=== PATIENT | female | born 1940 | race Caucasian/White ===

== ENCOUNTER 2017-02-04 23:19 | Inpatient (IN) | payer MEDICARE ==
[~2017-02-04] VITALS: Ht 161.3 cm; Wt 72.1 kg
[2017-02-05 00:40] VITALS: BP 108/54; PULSE 151; RESP 20; O2SAT 97
[2017-02-05] MEDS ORDERED: DOPamine 800 mg/250 mL D5W Premix IV ONE (00:51)
[2017-02-05] MEDS ORDERED: Polyethylene Glycol (PEG) 17 Gm Powder PO PRN (01:05)
[2017-02-05] MEDS ORDERED: Ondansetron 2 mg/mL 2 mL Inj IVPUSH PRN (01:05)
[2017-02-05] MEDS ORDERED: Senna-Docusate 8.6-50 mg Tablet PO PRN (01:05)
[2017-02-05] MEDS ORDERED: Norepineph 8,000 mCg/250 mL NS 8,000 MCG in IV Premix 1 EACH IV SCH (01:07)
--- NOTE | 2017-02-05 01:09 | PCM.HPMED ---
Subjective Date of Service Feb 05, 2017 Primary Provider: Admitting Physician: Destiny Quintero DO Primary Care Physician: Other,Physician Attending Physician: Destiny Quintero DO Admit Status: From the Emergency Department Chief Complaint: hypotension, dyspnea History of Present Illness: 76yoF with past medical history of ESRD on HD, atrial fibrillation, Bradycardia , CHF, COPD transferred from [facility] due to hypotension and acute dyspnea of unknown etiology. Patient is a poor historian and somnolent upon arrival. She is not answering questions appropriately however is alert and oriented x3. was called as well as daughter. Minimal history obtained from daughter. Patient's tried to arouse patient this morning and had a difficult time waking her but eventually got her up and was able to take her to her wound care appointment. Wound care was concerned that patient was somnolent and dyspneic and sent her to [facility]. Daughter mentioned new medication of morphine prescribed. Amount taken by patient is unknown. As per medical record and patient she became short of breath about 3-4 days ago. She endorses fevers and chills and as per documentation had rigors prior to initial presentation. Daughter was notified and was concerned about acute illness as the patient was slurring her words and not at baseline. Right lower extremity has been managed as an outpatient by wound care with recent antibiotics given however patient is unaware of what medications were initiated. Prior to transfer patient was given NS 1000cc, duoneb, insulin 5IV. Presenting vitals at OSH BP 101/53, HR 98, RR 24, oxygen sat 100 Labs on initial presentation sodium 133, potassium 5.7, chloride 100, CO2 22, calcium 8.4, BUN 71, creatinine 4.1 WBC 5.4, hgb 8.4 platelet 122, neutrophil 86.8%, INR 1.3, lactic acid 1.3 No imaging sent with patient or available for review. Review of Systems: unable to obtain complete review of systems as patient is somnolent Allergies Coded Allergies: egg (Verified Adverse Reaction, Intermediate, N/V, 02/05/17) Home Medications Home medications as per medical record with patient upon arrival this will need to be confirmed in [facility] in [place] ASA CoQ-10 Fibercon Fish oil Hydrocodone-acetaminophen Furosemide 40mg daily Losartan 25mg daily Spiriva Spironolactone Trazodone PMH Past medical history as per medical records available with patient. Patient is unable to give history on admission Atrial fibrillation Allergies Asthma Bradycardia Carpal Tunnel Syndrome CHF COPD DJD Fall Hyperkalemia ESRD, not currently on hemodialysis Surgical History Cardiac valve Fistula Hernia repair Pacemaker CAGB? Family History Patient is unable to give history on admission Social History Occupation: presumed retired Smoking Status: Unknown if Ever Smoker Exam Vital Signs T36.3 HR 151 RR 20 BP 108/54 (on dopamine) Exam General: somnolent but easily arousable, Oriented X3, Cooperative, No acute Distress Eyes: PERRLA, Scleral Anicteric Mouth: Mouth Normal, Mucous Membranes dry/[place] Neck: Supple, no Thyromegaly, trachea central. Chest & Lungs: crackles bases bilat Cardiovascular: Normal S1, Normal S2, No Murmurs/Rubs/Gallops, Regular Rate/ Rhythm, Pulses: Radial (present and equal), Dorsalis Pedi (present and equal) Abdomen: Soft, no tenderness, not distended, normoactive bowel tones. Musculoskeletal: Unremarkable. Normal range of motion, no swollen or erythematous joints Extremities: No edema, no cyanosis, no clubbing. Skin: right lower extremity wound Neurological: CN intact, strength 5/5, Normal Speech, Sensation Intact Lymphatic: Lymph nodes Cervical and Axillary not palpable. Lab and Diagnostics Labs sodium 132 potassium 5.9 CO2 19 Creatinine 3.93 Trop 0.074 BNP 7400 procal 0.31 hgb 8.8, mcv 102 Assessment & Plan 76yoF with past medical history of ESRD on HD, atrial fibrillation, Bradycardia , CHF, COPD transferred from [facility] due to hypotension and acute dyspnea of unknown etiology. Shock, acute, POA -unclear etiology septic vs cardiogenic -dopamine on transfer increased HR afib RVR -start norepinephrine, MAP goal >60 -ECHO ordered -broad spectrum abx, piperacillin-tazobactam -MRSA screen pending -possible infectious etiology, left left wound, urinalysis pending, blood cultures pending, abdomen benign no reports of recent diarrhea, CXR pending -cardiology consulted prior to transfer, recs appreciated NSTEMI, acute - elevated trop in the setting of scott - trop negative at osh, creatinine elevated as well - ASA, no bb d/t hypotension, no acei d/t renal function - lipid panel, hgba1c pending, trend trop - consider heparin gtt after head CT, unknown if patient on oral anticoagulation - briefly discussed EKG with Dr Huff - repeat ekg am -obtain records from [facility] CHF exacerbation, acute -in the setting of shock and newly elevated troponin (WNL at osh) -ECHO in am -unable to diurese at this time d/t BP (currently on norepinephrine) -reviewed EKG and some concern for ST elevation in anterior leads, discussed with Dr. Huff, will continue to monitor -repeat EKG in am with normalization of potassium, PRN with chest pain -reviewed cxr - fluid overload vs pna Dyspnea, acute -not symptomatic at this time -2/2 fluid overload, pna, pe not ruled out -consider vq scan in am Metabolic encephalopathy, acute -possible a/w elevated BUN, CVA, hypotension, sepsis -CT head non-contrast when stable -treatment for shock and chronic conditions as described Hyperkalemia, acute -secondary to renal function -insulin, glucose, kayexalate, bicarb given -nephrology consulted, recs appreciated Hyponatremia, acute -mild -continue to monitor Right lower extremity wound, chronic -likely acute on chronic change with purulent drainage, concern for pseudomonas infection vs colonization -start piperacillin-tazobactam -wound consult ESRD, chronic -unknown baseline - likely acute on chronic -dialysis fistula placed 2-3 years ago, dialysis not initiated -labs pending on admission -nephrology consulted prior to transfer, recs appreciated CHF, chronic -no past history known -patient is followed by cardiology at [facility] in [place] -ECHO as above -obtain records from [facility] cardiology Paroxysmal atrial fibrillation, chronic -as per report by daughter, not currently anticoagulated -INR at OSH WNL -med rec will need completion - AM team to call [facility] CAD, chronic -past history of CABG Pain Evaluation: Adequate Pain Control GI Prophylaxis: Proton Pump Inhibitor Resuscitation Status: CPR: Attempt Resuscitation (presumed full code. no information avail regarding code status) Time spent 60 minutes of critical care time spent on plan development and management of patient Destiny Quintero Feb 05, 2017 01:09
[2017-02-05 01:41] LABS: BASOPHILS % (AUTO) 0.6 % (0-3); EOSINOPHILS % (AUTO) 0.2 % (0-5); MONOCYTES % (AUTO) 5.1 % (4-12); Mean Corpuscular Hemoglobin 30.6 pg (27.0-35.0); Mean Corpuscular Volume 102.1 fL (81-100); NEUTROPHILS % (AUTO) 89.5 % (40-74); Platelet Count 115 bil/L (150-400)
[2017-02-05 02:29] LABS: INR 1.18 ratio
[2017-02-05] MEDS: Norepineph 8,000 mCg/250 mL NS 8,000 MCG in IV Premix 1 EACH IV SCH ×3 (02:38→20:35)
--- NOTE | 2017-02-05 02:46 | NUR ---
Admit Arrive from [facility] ER approx 0030. Per medics zofran given for N/V in route and unable to decrease dopamine in route due to low BP. HR was in the 150-160s per medics.Drowsy, oriented, forgetful. Difficult to keep awake. Denies pain, dyspnea, N/V. Tele Afib, 130-160s. Dopamine at 15mcg. BP 80/40s. Dopamine stopped at [address] Quintero. BP 70/30s. HR dropping to the 80s. Norepinephrine drip started. 2L NC, sats =100%. Incontinent of urine. 16 F rahman placed. Anisha UOP. UA sent. Pt states has living well. No family present to ask to bring in. Also pt states does not know the names or doses of her medication "the list is in my purse". Forgets name of her pharmacy and purse nor family member present.
[2017-02-05 02:52] LABS: APPEARANCE,URINE SLIGHTLY CLOUDY (CLEAR,HAZY); COLOR,URINE DARK YELLOW (YELLOW)
[2017-02-05 02:53] LABS: OCCULT BLOOD,URINE NEGATIVE (NEGATIVE); UROBILINOGEN,URINE NORMAL (NORMAL)
[2017-02-05 02:55] LABS: Magnesium 3.3 mg/dL (1.6-2.6)
[2017-02-05] MEDS ORDERED: Piperacillin-Tazo 3.375 Gm Inj 3.375 GM in Dextrose 5% Minibag Plus 50 ML IV ONE (02:55)
[2017-02-05 02:58] LABS: TROPONIN T 0.074 ug/L (0.0-0.011)
[2017-02-05] MEDS ORDERED: Sodium Polystyrene Sulfonate 0.25 Gm/mL 500 mL Suspension PO ONE (03:20)
[2017-02-05] MEDS ORDERED: Sodium Bicarb (50 mEq) 8.4% 1 mEq/mL 50 mL Syringe IVPUSH ONE (03:20)
[2017-02-05] MEDS ORDERED: Insulin Human REGular-Omnicell 100 Unit/mL IV ONE (03:20)
[2017-02-05 04:30] VITALS: BP 98/55; PULSE 94; RESP 18; O2SAT 100
--- NOTE | 2017-02-05 04:57 | ABG ---
DateTimeAnalyzed 04:55:00 -_ pH ____7.316 - 7.350 7.450 pCO2 ___48.7__ -mmHg 35.0 45.0 pO2 126 -mmHg 69.0 116 HCO3- ___24.1__ -mmol/L 22.0 26.0 ABE ___-1.6__ -mmol/L -2.0 2.0 tHb ____9.2__ -g/dL O2Hb ___96.5__ -% COHb ____1.5__ -% MetHb ____0.9__ -% sO2 ___98.9__ -% FIO2 ___21.0__ -% Drawn By MD - Date/Time Notified____ 04:57:00 -_ Spontaneous_RR ___20.0__ -b/min Liter_Flow ____3.0__ -L/min Oxygen Device 1 Nasal Cannula - Notified By MD - Notified Whom RN K.AGNES - B 751 -mmHg tO2 ___12.7__ -Vol% Umesh test _Positive -
--- NOTE | 2017-02-05 06:26 | NUR ---
P: hypotension I: norepinephrine drip E: Titrating norepinephrine upwards. Drowsy, oriented, forgetful. Occasional arm tremors and body twitching. Denies dyspnea, pain, N/V. Tele A fib, wide complex. HR in the 80-90s. UOP = 100ml, flavio. 1L NC = 98%. Pt receive D50, 10units Reg insulin, kayexalate (no stool), bicarb. CT of head completed.
[2017-02-05 08:00] VITALS: BP 109/47; PULSE 103; RESP 17; O2SAT 96
--- NOTE | 2017-02-05 09:17 | DRSVH ---
PROCEDURE: CT BRAIN WITHOUT CONTRAST ([id number]) INDICATIONS: encephalopathy TECHNIQUE: Noncontrast 4.5 mm thick angled axial sections acquired from the foramen magnum to the vertex, with c oronal reformats. COMPARISON: None. FINDINGS: Image quality: Excellent. CSF spaces: Basal cisterns are patent. No extra-axial fluid collections. The ventricles are symmet karen in size and shape. Brain: No intracranial bleeds or masses. There is cerebral volume loss for age, with resultant vent ricular and sulcal prominence. There are periventricular and deep white matter chronic small vessel ischemic changes. There is intracranial internal carotid artery atherosclerosis. Skull and face: Calvarium and visualized facial bones appear intact, without suspicious lesions. Sinuses: Visualized sinuses and mastoids are clear. IMPRESSION: 1. No acute intracranial findings. 2. Findings likely associated with microvascular ischemic changes. Note: The preliminary [facility] interpretation and the final report are concordant. Dictated by: Jade Banks M.D. on 02/05/2017 at 9:15 Approved by: Jade Banks M.D. on 02/05/2017 at 9:16
--- NOTE | 2017-02-05 09:28 | DRSVH ---
PROCEDURE: X-RAY CHEST ONE VIEW, PORTABLE ([id number]) INDICATIONS: line placement TECHNIQUE: One view of the chest was acquired. COMPARISON: None. FINDINGS: Surgical changes and devices: Post median sternotomy and dual chamber left cardiac pacer present. Va lvular replacement. Right IJ CVL present projected over the mid upper SVC. Lungs and pleura: No pleural effusions or pneumothorax. Interstitium is prominent and there is airs pace opacity involving the left lung base. Probable trace left pleural effusion. No pneumothorax. Mediastinum: Mediastinal contours appear normal. Heart size is enlarged. Bones and chest wall: No suspicious bony lesions. Overlying soft tissues appear unremarkable. IMPRESSION: 1. Interstitium is prominent and mild edema is suspected as well as possible pneumonia versus atelect asis involving the left lung base. 2. Place the right IJ CVL. 3. Possible trace left pleural effusion. Dictated by: Mic Carias [facility] Interpreted: Abrahan Kidd MD on 02/05/2017 at 9:26 Transcribed by: RADHA on 02/05/2017 at 9:27 Approved by: Abrahan Kidd M.D. on 02/05/2017 at 17:07
--- NOTE | 2017-02-05 11:30 | NUR ---
NUTRITION ASSESSMENT Assess: 76 YO F admitted to CCU with hypotension, shock, CHF exacerbation, and NSTEMI. Nephrology consulted. PMHX: ESRD (no dialysis), hyperkalemia, afib, asthma, bradycardia, CHF, COPD, DJD. DIET: NPO. LABS: Na 132, K+ 5.8, BUN 79, Cr 3.93, Mg 3.3, BUN 79, Glu 108, PAB 14 MEDICATIONS: Reviewed. Pressor. GI: No BM noted. SKIN: No issues noted. ANTHROPOMETRICS: Wt: 67.5 kg, BMI 26.4 kg/m2, Admit wt: 67.5 kg. ESTIMATED NEEDS: CCU/COPD/ESRD-NO DIALYSIS Calories: 7299-6513 kcal/day (25-35 kcal/kg BW) Protein: 68-81 g/day (1.0-1.2 g/kg BW) NUTRITION DIAGNOSIS: 1) Inadequate oral intake related to decreased ability to consume sufficient energy as evidenced by NPO status. INTERVENTION: 1) Will await timely advance of diet. 2) If pt starts dialysis, will re-calculate estimated needs. MONITOR/EVALUATE: NPO status, diet advance, labs, GI, nutrition status. Follow per moderate nutrition risk guidelines.
[2017-02-05 12:00] VITALS: BP 102/56; PULSE 108; RESP 20
--- NOTE | 2017-02-05 13:15 | PCM.PNMED ---
Subjective Date of Service Feb 05, 2017 Subjective She is on a little bit better. Less confused and more talkative. She denies any chest pain or shortness of breath. She has been in bed plus several hours etc. cannot really say she is weak. No abdominal pain. She has a fistula in place but is never dialyzed. Exam Vital Signs Vital Sign - Last Date Time Temp Pulse Resp B/P Pulse Ox O2 Delivery O2 Flow Rate FiO2 02/05/17 12:00 36.9 108 20 102/56 Nasal Cannula 1.00 02/05/17 08:00 96 Intake and Output 02/04/17 02/04/17 02/05/17 Cumulative From/Thru 15:00 23:00 07:00 02/05/17 01:05 - 02/05/17 06:25 Intake Total 280 ml 280 ml Output Total 100 ml 100 ml Balance 180 ml 180 ml Intake Oral 120 ml 120 ml IV Total 160 ml 160 ml Output Urine Total 100 ml 100 ml # Bowel Movements 0 0 Exam Alert oriented 3, fluent speech. No distress. Anicteric sclerae. Neck supple. Lungs are clear with normal effort. Heart is regular without murmur gallop or rub. Soft nontender. Not distended Extremities are free of edema good pedal pulses. IVs and Medications Medications Reviewed: Medications were reviewed in detail Lab and Diagnostics Result Diagram: 02/05/17 0120 02/05/17 1220 Assessment & Plan 76yoF with past medical history of ESRD on HD, atrial fibrillation, Bradycardia , CHF, COPD transferred from [place] due to hypotension and acute dyspnea of unknown etiology. 1. Shock, acute, POA -unclear etiology septic vs cardiogenic -dopamine on transfer increased HR afib RVR -start norepinephrine, MAP goal >60 -ECHO ordered -broad spectrum abx, piperacillin-tazobactam -MRSA screen pending -possible infectious etiology, left left wound, urinalysis pending, blood cultures pending, abdomen benign no reports of recent diarrhea, CXR pending -cardiology consulted prior to transfer, recs appreciated The plan is as above. We will obtain a 2-D echo to assess function. We will continue empiric antibiotic coverage pending her blood cultures. We will also add Intal respiratory PCR. 2. Possible NSTEMI, acute and POA - elevated trop in the setting of scott - trop negative at osh, creatinine elevated as well - ASA, no bb d/t hypotension, no acei d/t renal function - lipid panel, hgba1c pending, trend trop - consider heparin gtt after head CT, unknown if patient on oral anticoagulation - briefly discussed EKG with Dr Huff - repeat ekg am -obtain records from [facility] We will continue basic medical management as we further discern the level of care and significance of her serial troponins. We will also assess her echo. Her troponin elevations are very marginal may relate to her chronic kidney disease. 3. CHF exacerbation, acute (likely diastolic), POA -in the setting of shock and newly elevated troponin (WNL at osh) -ECHO in am -unable to diurese at this time d/t BP (currently on norepinephrine) -reviewed EKG and some concern for ST elevation in anterior leads, discussed with Dr. Huff, will continue to monitor -repeat EKG in am with normalization of potassium, PRN with chest pain -reviewed cxr - fluid overload vs pna 4. Dyspnea, acute. POA. No hypoxia or hypercarbia. -not symptomatic at this time -2/2 fluid overload, pna, pe not ruled out -consider vq scan in am This likely represents her aggressive kidney failure and need for dialysis initiation. 5. Metabolic encephalopathy, acute -possible a/w elevated BUN, CVA, hypotension, sepsis -CT head non-contrast when stable -treatment for shock and chronic conditions as described We will continue to follow this clinically. She appears to be much more lucid this morning compared to notes of her time of admission. 6. Hyperkalemia, acute -secondary to renal function -insulin, glucose, kayexalate, bicarb given -nephrology consulted, recs appreciated She was given Kayexalate. A repeat potassium continues to be high. We will repeat her K oxalate. 7. Hyponatremia, acute -mild -continue to monitor 8. Right lower extremity wound, chronic -likely acute on chronic change with purulent drainage, concern for pseudomonas infection vs colonization -start piperacillin-tazobactam -wound consult 9. Chronic kidney disease stage IV with a GFR of 16. -unknown baseline - likely acute on chronic -dialysis fistula placed 2-3 years ago, dialysis not initiated -labs pending on admission -nephrology consulted prior to transfer, recs appreciated 10. Paroxysmal atrial fibrillation, chronic -as per report by daughter, not currently anticoagulated -INR at OSH WNL -med rec will need completion - AM team to call [facility] 11. CAD, chronic -past history of CABG Pain Evaluation: Adequate Pain Control GI Prophylaxis: Proton Pump Inhibitor VTE Mechanical Devices: Intermittant Pneumatic CD Resuscitation Status: CPR: Attempt Resuscitation (presumed full code. no information avail regarding code status) Time spent 35 minutes Umesh Montez MD Feb 05, 2017 13:15
--- NOTE | 2017-02-05 13:23 | NUR ---
Social Work Note: Initial Assessment Data& Assessment: EMR reviewed. SW met with pt at bedside to discuss discharge planning. SW role explained and SW phone number written on pt white board. Destinee Torres is a 76 year old female admitted on 02/05/2017 for hypotension. Pt has [employer] Medicare insurance coverage and sees Dr. Grey for primary care. Pt lives in [place] with her spouse Harley and is independent at baseline. Pt lives in a one story home with two steps to enter the home. Pt does not use any DME at baseline. Pt transports her to appointments. Pt denies HH or SNF hx. Pt denies LTC insurance or VA benefits. Pt has DPOA/Advance directive paperwork at home, SW requested a copy be brought in for her chart. Pt to transport her home when medically ready. Pt denies any needs at this time. SW to continue to follow for MD and PT evaluation and recommendations. Plan: Anticipated discharge home when medically ready. SW to continue to follow for MD and PT evaluation and recommendations. Pt denies any needs at this time. SW to continue to follow. CINTHIA Carrera Addendum: 02/05/17 at 1327 by HARSHIL CARUSO Amended: Links added.
[2017-02-05] MEDS ORDERED: ASPI325T32 PO (13:48)
[2017-02-05] MEDS ORDERED: TORS10TA5 PO (13:48)
[2017-02-05] MEDS ORDERED: LOSA25TA21 PO (13:48)
[2017-02-05] MEDS ORDERED: HYDR-4003 PO (13:48)
[2017-02-05] MEDS ORDERED: SPIR25TA3 PO (13:48)
[2017-02-05] MEDS ORDERED: ZYL100 PO (13:48)
[2017-02-05] MEDS ORDERED: TRAZ-115 PO (13:48)
[2017-02-05] MEDS ORDERED: MAGN500C4 PO (13:49)
[2017-02-05] MEDS ORDERED: OMEG500C PO (13:50)
[2017-02-05] MEDS ORDERED: UBID100C16 PO (13:51)
[2017-02-05] MEDS ORDERED: ASCO100089 PO (13:51)
[2017-02-05] MEDS ORDERED: CYAN500 PO (13:54)
[2017-02-05] MEDS ORDERED: PYR50 PO (13:55)
[2017-02-05] MEDS ORDERED: CALC625T83 PO (13:56)
--- NOTE | 2017-02-05 13:59 | CONS ---
[address] [address] CONSULTATION REPORT PATIENT: KAMI PACHECO : 1940 MR#: [id number] ADMIT: 02/05/2017 JOB ID: [id number] DATE OF SERVICE: 02/05/2017 NEPHROLOGY CONSULTATION: REQUESTING PHYSICIAN: Destiny Quintero DO REASON FOR CONSULTATION: Management of abnormal kidney function and hyperkalemia. CHIEF COMPLAINT: Shortness of breath. HISTORY OF PRESENT ILLNESS: This is a 76-year-old, lady with significant past medical history of chronic kidney disease stage 4, chronic atrial fibrillation, CHF, COPD, status post pacemaker placement, who was transferred from [facility] in [place] due to shortness of breath and hypotension. The patient presented at the [facility] around 4 p.m. with a complaint of shortness of breath. Her initial blood pressure was 101/53, heart rate of 98, respiratory of 24, O2 sat of 100 on room air. Later on, her blood pressure dropped to 74/34. She received normal saline bolus of 500 mL. However, her blood pressure remained low. She was later on placed on the dobutamine and transferred to our center for further management. The patient is a very poor historian. I am not able to get any meaningful history. I have gathered history from the medical record. The initial blood work at the [facility] showed BUN of 71, creatinine of 4.2, potassium of 6.1, bicarb of 28. The patient received medical management for the hyperkalemia and the repeated potassium came down to 5.7. According to the record the patient was seen by [facility] due to lesion to the right rai. She received antibiotics and it has improved. She was also prescribed morphine as needed for the pain. The was not aware how much she took her medications. She is the patient of Dr. Ash, a putty mixer and applier in [place]. The last visit with him was about 6 weeks ago. Her creatinine at that time was in the 2's range. The patient had AV fistula creation approximately one year ago. She has not been on dialysis. When I offered dialysis at this time she has refused. The patient developed atrial fibrillation with RVR after dopamine started. Here at [facility] we switched to norepinephrine. Her blood pressure has been stable throughout the night; however, she remains in irregular rhythm with RVR. PAST MEDICAL HISTORY: 1. Chronic kidney disease stage 4. 2. CHF. 3. Atrial fibrillation. 4. Bradycardia. 5. Carpal tunnel syndrome. 6. COPD. 7. Valvular heart disease. 8. Renal osteodystrophy. 9. Anemia of chronic kidney disease. 10. Pulmonary hypertension. 11. Sleep apnea. 12. Tricuspid regurgitation, mitral regurgitation, aortic valve disease. 13. Dyslipidemia. 14. Venous stasis. PAST SURGICAL HISTORY: 1. Status post fistula creation on the left upper extremity. 2. Hernia repair. 3. Cardiac valve. 4. Pacemaker placement. ALLERGIES: MILK, EGGS. FAMILY HISTORY: Unable to obtain. SOCIAL HISTORY: The patient is a former smoker. MEDICATIONS: Aspirin, Co-Q10, FiberCon, fish oral, hydrocodone/acetaminophen, Lasix, losartan, Spiriva, Aldactone, trazodone. REVIEW OF SYSTEMS: Unable to obtain. PHYSICAL EXAMINATION: Vitals: Temperature 36.9, pulse 108, respiratory rate 20, blood pressure 102/56. General appearance: Somnolent, arousable. Mildly tachypneic. Oriented x3. HEENT: Mild pallor. No jaundice. Positive for JVD. No lymphadenopathy. No thyroid enlargement. Heart: Irregular rhythm. Tachycardic. Systolic murmur noted. Lungs: Equal breath sounds bilaterally. Rales at the bases. Abdomen: Soft. Active bowel sounds. No hepatosplenomegaly. Extremities: No edema or cyanosis. Positive for flapping tremors, positive for generalized twitching. Left AV fistula with good thrill and bruit. LABORATORY: Sodium 132, potassium 5.8, chloride 95, bicarb 19, BUN 72, creatinine 3.93, sugar 108, magnesium 3.3. Troponin 0.158. ProBNP 7408. Procalcitonin 0.31. Hemoglobin 8.8. Urine: pH 5.0, specific gravity 1.021, 0-2 RBCs, 0-5 WBCs, hyaline casts noted. Chest x-ray showed interstitium is prominent and mild edema is suspected, as well as possible pneumonia with atelectasis involving the left lung base. ASSESSMENT: 1. Hypotension. Sepsis versus cardiogenic shock. 2. Elevated serum troponin. 3. Acute kidney injury on chronic kidney disease, stage 4. 4. Hyperkalemia. 5. History of congestive heart failure. 6. History of chronic atrial fibrillation. 7. Valvular heart disease. 8. Anemia of chronic kidney disease. 9. Renal osteodystrophy. RECOMMENDATIONS: I have talked to Dr. Villagran, who is her primary putty mixer and applier. Apparently the patient has chronic kidney disease stage 4 for quite some time. Her baseline serum creatinine was in 2's range. She had a AV fistula placed roughly a year ago. The patient has not been on dialysis. She came in at this time with acute kidney injury on chronic kidney disease likely due to prerenal azotemia from hypotension and possible CHF exacerbation. The patient does not want any renal replacement therapy at the moment. She would like to try medical management first. At this point we will continue broad-spectrum antibiotics pending further cultures. Keep mean arterial pressure above 65 mmHg. Recommend to repeat her echocardiogram. I will repeat her stat BMP. If potassium remains elevated, will treat medically. I will give her one dose of IV Lasix 40 mg x1 to see if we can enhance her urine output. Thank you for the consultation. We will monitor along with you. MTDD
[2017-02-05] MEDS ORDERED: Furosemide 10 mg/mL 4 mL Inj IVPUSH ONE (14:10)
[2017-02-05] MEDS ORDERED: Insulin Human REGular 300 Unit/3 mL Inj IV ONE (14:10)
--- NOTE | 2017-02-05 14:51 | DRSVH ---
[facility] [address] [place] [address] Echocardiogram Report Name: KAMI PACHECO JStudy Date: 02/05/2017 Height: 63 in Hospital Exam Location: [facility] Weight: 149 lb Gender: Female BSA: 1.7 m2 : 1940 Age: 76 yrs BP: 98/5 5 mmHg Reason For Study: Congestive Heart Failure Ordering Physician: HOSPITALIST [facility] Performed By: Aamir Haynes Referring Physician: MADHU SAMANO Interpretation Summary 1. Normal left ventricular size with concentric hypertrophy (wall thicknesses 1.4 cm). Difficult to assess EF given significant dyssynchrony, but appears at least moderately reduced 2. Severely dilated right ventricle with at least mildly reduced function. Severe tricuspid regurgitation. The estimated RVSP is 80 mm Hg (with evidence for elevated right atrial pressures). 3. The prosthetic aortic valve appears well seated and appears to be functioning well. Trace insufficiency. 4. Findings consistent with mitral stenosis (the gradient was measured in the range of 10-11 mm Hg) There is no old study for comparison Procedure: A two-dimensional transthoracic echocardiogram with color flow and Doppler was performed. The study quality was technically adequate. There is no prior echocardiogram noted for this patient. The heart rate ranged between 102-124 bpm during the study. Left Ventricle: The left ventricle is normal in size. There is moderate concentric left ventricular hypertrophy. Difficult to accurately assess LV function given dyssynchrony - LV function appears at least moderately reduced. There is a significant dyssynchronous contraction pattern due to the paced rhythm. Flattened septum is consistent with RV pressure/volume overload. Diastolic function could not be accurately assessed due to tachycardia. Right Ventricle: The right ventricle is severely dilated. Right ventricular systolic function is mild to moderately reduced. Atria: Both atria are severely dilated. There is no Doppler evidence for an atrial septal defect. Mitral Valve: There is moderate to severe mitral annular calcification. The mitral valve leaflets are moderately calcified. The mitral valve mean gradient is 10 mmHg. There is mild to moderate mitral regurgitation. Difficult to accurately assess mitral regurgitation. Aortic Valve: There is a bioprosthetic aortic valve. Peak velocity 3.2 m/s (with some beat to beat variability). There is trace aortic regurgitation. Tricuspid Valve: The tricuspid valve leaflets are thin and pliable. Poor coaptation. There is severe tricuspid regurgitation. The right ventricular systolic pressure is estimated at 80 mmHg assuming a right atrial pressure of 15 mm Hg. Pulmonic Valve: The pulmonic valve leaflets are thin and pliable; valve motion is normal. There is mild to moderate pulmonic regurgitation. Great Vessels: The aortic root is normal size. The ascending aorta is dilated at 4.2 cm. The pulmonary artery is not well visualized, but is probably normal size. The IVC is dilated (diameter is greater than 2.1 cm) and it collapses less than 50% with a sniff. This suggests a high right atrial pressure of 15 mm Hg. Pericardium/ Pleura There is no pericardial effusion. There is a moderately large left-sided pleural effusion. MMode/2D Measurements & Calculations LVIDd: 4.1 cm RA long axis LVOT diam LVIDs: 3.0 cm LA A2 area: 40.4 cm FS: 26.9 % LA A4 area: 31.1 cm RA area Ao root diam IVSd: 1.4 cm LA length (vol): 7.1 cm LVPWd: 1.4 cm LA vol: 150.2 ml : 36.0 cm asc Aorta LA vol index RA vol Diam: 4.2 cm : 146.ml RA IVC diam: 3.1 cm : 86.1 mm2 LV santo. diameter/BSA LV sys. diameter/BSA RVD1 (basal) RVD2 (mid) (cm/m^2): 2.4 (cm/m^2): 1.7 : 3.6 cm TAPSE: 1.3 cm Doppler Measurements & Calculations Ao V2 max MVA(VTI) TR max omkar MV V2 mean: 155.4 cm/sec : 310.8 cm/sec : 0.89 2m : 405.4 cm/sec MV mean P.9 mmHg Ao max PG TR max PG MV V2 VTI: 50.1 cm : 39.3 mmHg : 65.8 mmHg Ao mean PG PA V2 max : 23.9 mmHg : 167.8 cm/sec LVOT Max Omkar PA mean PG : 96.5 cm/sec : 3.5 mmHg EDISON(I,D): 0.87 cm sev ratio Ao V2 mean LV V1 max PG PA V2 mean EDISON indexed to BSA : 232.7 cm/sec : 80.2 cm/sec (cm^2/m^2): 0.51 Ao V2 VTI: 50.9 cm LV V1 VTI PA pr(Accel) : 16.2 cm : 49.1 mmHg EDISON(V,D): 0.85 cm2 Reading Physician:02:50 PM
[2017-02-05 16:00] VITALS: BP 99/57; PULSE 106; RESP 16; O2SAT 96
--- NOTE | 2017-02-05 16:10 | NUR ---
BP/skin/mentation Pt continues on levophed at 0.24, titrating to MAP >65 (see CCU flow sheet). TELE afib with IVCD in one-teens. Pt RASS score -1 most of shift, wakes to light touch, oriented x3, but forgetful/poor historian. Pt helping with turns, prefer bed in chair position, with feet down. Skin assessed with wound care nurse, no redness or open areas on buttocks. Dressings on legs changed by Jed, wound care. Report on pt passed to Meli Novoa RN.
[2017-02-05] MEDS: Piperacillin-Tazo 3.375 Gm Inj 3.375 GM in Dextrose 5% Minibag Plus 50 ML IV SCH (17:20)
--- NOTE | 2017-02-05 18:23 | NUR ---
Wound Care Wound evaluation order received, pt seen at bedside. 76 yo female admitted to CCU for hypotension and acute dyspnea, seen at [facility] for treatment of right lower leg ulcers. Presents with2 ulcers one at the pretibial mid rai and one lateral to it. Lateral wound is 2 cm L x 2 cm W x 0.2 cm D, wound base is fibrin and granulation tissue,drainage is scant,serous and without odor. Ant Rai wound is 2 cm L x 2 cm W x 0.2 cm D, wound base is fibrin and granulation tissue,drainage is scant,serous and without odor. Pulses are not palpable at the foot or ankle but capillary refill is present though slow. Wounds were cleaned with saline and gauze and redressed with hydrogel, aquacell ag and gauze and tape. Will recheck on this patient is 48 hrs.
--- NOTE | 2017-02-05 19:21 | NUR ---
Family requests conference with physicians tomorrow. After long conversations with daughter and , there appears to be a longstanding pattern of unhappiness with care and dissatisfaction with clinicians. Family would like to encourage dialysis at this point. Discussion with included code status and that if dialysis is not pursued, intervention for cardiac arrest would be futile if her electrolytes cannot be corrected.
[2017-02-05 20:10] VITALS: BP 115/61; PULSE 118; RESP 21; O2SAT 96
[2017-02-06] VITALS: BP 101/54; PULSE 105; RESP 19; O2SAT 97
[2017-02-06 03:17] LABS: BASOPHILS % (AUTO) 1.5 % (0-3); EOSINOPHILS % (AUTO) 0.8 % (0-5); MONOCYTES % (AUTO) 9.3 % (4-12); Mean Corpuscular Hemoglobin 30.8 pg (27.0-35.0); Mean Corpuscular Volume 99.7 fL (81-100); NEUTROPHILS % (AUTO) 77.9 % (40-74); Platelet Count 202 bil/L (150-400)
[2017-02-06] MEDS: Norepineph 8,000 mCg/250 mL NS 8,000 MCG in IV Premix 1 EACH IV SCH ×2 (03:27→12:08)
[2017-02-06] MEDS: Piperacillin-Tazo 3.375 Gm Inj 3.375 GM in Dextrose 5% Minibag Plus 50 ML IV SCH (04:05)
[2017-02-06 04:06] LABS: Magnesium 3.2 mg/dL (1.6-2.6); Phosphorus 5.6 mg/dL (2.5-4.9); Unsaturated Iron Binding 182.6 ug/dL
[2017-02-06 04:07] VITALS: BP 112/56; PULSE 108; RESP 16; O2SAT 97
--- NOTE | 2017-02-06 06:41 | NUR ---
BP/HR pt still on levophed titrating gtt to keep MAP greater then 65 at one point gtt up to 0.3mcg/kg/min but then able to titrate back down to 0.25mcg/kg/min, pt AFIB/AFLUTTER rate 100-120s pt denies any CP, pt needing 1L NC during the night.
[2017-02-06] MEDS ORDERED: Heparin 25K Unit/500mL 0.45 NS 25,000 UNIT in IV Premix 1 EACH IV SCH (07:40)
[2017-02-06] MEDS ORDERED: Heparin 5,000 Unit/mL Inj IVPUSH PRN (07:40)
[2017-02-06] MEDS ORDERED: Heparin 5,000 Unit/mL Inj IVPUSH ONE (07:40)
[2017-02-06 07:47] VITALS: BP 100/56; PULSE 118; RESP 22; O2SAT 98
--- NOTE | 2017-02-06 07:50 | PCM.PNMED ---
Subjective Date of Service Feb 06, 2017 Subjective Patient is resting in bed. She thinks that she mentally is clear. She is unsure if she had bowel movements over the past few days and she is not sure. She denies any chest pain. She does note some intermittent tremors. Exam Vital Signs Vital Sign - Last Date Time Temp Pulse Resp B/P Pulse Ox O2 Delivery O2 Flow Rate FiO2 02/06/17 04:07 36.9 108 16 112/56 97 Nasal Cannula 1.00 Intake and Output 02/05/17 02/05/17 02/06/17 Cumulative From/Thru 15:00 23:00 07:00 02/05/17 01:05 - 02/06/17 06:20 Intake Total 515 ml 514 ml 1309 ml Output Total 300 ml 500 ml 900 ml Balance 215 ml 14 ml 409 ml Intake Oral 50 ml 170 ml IV Total 465 ml 514 ml 1139 ml Output Urine Total 300 ml 500 ml 900 ml # Bowel Movements 0 Exam Constitutional: Elderly woman who appears mildly dyspneic Head: Normocephalic atraumatic Eyes: PERRLA DC EOMI Chest: Decreased breath sounds at her bases Cor: Irregular regular rate and rhythm tachycardic S1-S2 over 6 systolic ejection murmur Abdomen: Soft nontender bowel sounds present Extremities: Trace bilateral pedal edema rate has chronic wound present medial calf area IVs and Medications Medications Reviewed: Medications were reviewed in detail Lab and Diagnostics Laboratory Tests 72 Hours Test 02/05/17 01:20 02/05/17 02:25 02/05/17 07:10 02/05/17 12:20 White Blood Count 5.1th/mm3 (3.8-10.1) Red Blood Count 2.88mil/mm3 (3.90-5.20) Hemoglobin 8.8g/dL (12.0-15.6) Hematocrit 29.4% (35.0-46.0) Mean Corpuscular Volume 102.1fL (81-100) Mean Corpuscular Hemoglobin 30.6pg (27.0-35.0) Mean Corpuscular Hemoglobin Concent 29.9% (32.0-37.0) Red Cell Distribution Width 17.0% (12.3-15.4) Platelet Count 115bil/L (150-400) Neutrophils (%) (Auto) 89.5% (40-74) Lymphocytes (%) (Auto) 4.4% (14-46) Monocytes (%) (Auto) 5.1% (4-12) Eosinophils (%) (Auto) 0.2% (0-5) Basophils (%) (Auto) 0.6% (0-3) Prothrombin Time 12.7sec (8.1-12.5) Prothromb Time International Ratio 1.18ratio Activated Partial Thromboplast Time 30.5sec (22.8-33.0) Sodium Level 132mEq/L (134-144) 134mEq/L (134-144) Potassium Level 5.8mEq/L (3.5-5.2) 6.0mEq/L (3.5-5.2) Chloride Level 95mEq/L (97-108) 95mEq/L (97-108) Carbon Dioxide Level 19mmol/L (18-29) 22mmol/L (18-29) Blood Urea Nitrogen 72mg/dL (8-27) 74mg/dL (8-27) Creatinine 3.93mg/dL (0.57-1.00) 4.13mg/dL (0.57-1.00) Estimat Glomerular Filtration Rate 16mL/min (>59) 15mL/min (>59) Glucose Level 108mg/dL (60-99) 125mg/dL (60-99) Hemoglobin A1c 5.4% (4.8-5.6) Lactic Acid Level 1.1mmol/L (0.4-2.0) Calcium Level 8.5mg/dL (8.5-10.1) 8.8mg/dL (8.5-10.1) Magnesium Level 3.3mg/dL (1.6-2.6) Total Bilirubin 1.2mg/dL (0.0-1.2) Aspartate Amino Transf (AST/SGOT) 25U/L (0-50) Alanine Aminotransferase (ALT/SGPT) 12U/L (0-32) Alkaline Phosphatase 107U/L (25-165) Troponin T 0.074ug/L (0.0-0.011) 0.158ug/L (0.0-0.011) Pro-B-Type Natriuretic Peptide 7408pg/mL (0-738) Total Protein 6.6g/dL (6.4-8.4) Albumin 3.7g/dL (3.4-5.0) Prealbumin 14mg/dL (20-40) Procalcitonin 0.31ng/mL (0.00-0.08) Urine Color Dark yellow (YELLOW) Urine Appearance Slightly cloudy Urine pH 5.0 (5.0-8.0) Urine Specific [place] 1.021 (1.003-1.035) Urine Protein Tracemg/dL (NEG,TRACE) Urine Glucose (UA) Negativemg/dL (NEGATIVE) Urine Ketones Tracemg/dL (NEGATIVE) Urine Occult Blood Negative (NEGATIVE) Urine Nitrite Negative (NEGATIVE) Urine Bilirubin Negative (NEGATIVE) Urine Urobilinogen Normalmg/dL (NORMAL) Urine Leukocyte Esterase Negative (NEGATIVE) Urine RBC 0-2/hpf (0-2) Urine WBC 0-5/hpf (0-5) Urine Epithelial Cells Few/hpf (NONE-MOD) Urine Crystals Amorphous urates (NONE Urine Bacteria None/hpf (NONE-FEW) Urine Hyaline Casts 5/20/lpf (NONE) Urine Granular Casts None seen (NONE SEEN) Urine Waxy Casts None seen (NONE SEEN) Urine Red Blood Cell Casts None seen (NONE SEEN) Urine White Blood Cell Casts None seen (NONE SEEN) Urine Mucus None seen (None Seen) Urine Trichomonas None seen (NONE SEEN) Urine Yeast None (NONE SEEN) Urine Culture Reflexed Not indicated Test 02/05/17 17:50 02/06/17 03:02 02/06/17 03:05 Sodium Level 134mEq/L (134-144) 134mEq/L (134-144) Potassium Level 5.3mEq/L (3.5-5.2) 5.9mEq/L (3.5-5.2) Chloride Level 95mEq/L (97-108) 95mEq/L (97-108) Carbon Dioxide Level 22mmol/L (18-29) 18mmol/L (18-29) Blood Urea Nitrogen 75mg/dL (8-27) 75mg/dL (8-27) Creatinine 4.27mg/dL (0.57-1.00) 4.00mg/dL (0.57-1.00) Estimat Glomerular Filtration Rate 14mL/min (>59) 16mL/min (>59) Glucose Level 154mg/dL (60-99) 133mg/dL (60-99) Calcium Level 8.6mg/dL (8.5-10.1) 8.5mg/dL (8.5-10.1) White Blood Count 7.6th/mm3 (3.8-10.1) Red Blood Count 3.47mil/mm3 (3.90-5.20) Hemoglobin 10.7g/dL (12.0-15.6) Hematocrit 34.6% (35.0-46.0) Mean Corpuscular Volume 99.7fL (81-100) Mean Corpuscular Hemoglobin 30.8pg (27.0-35.0) Mean Corpuscular Hemoglobin Concent 30.9% (32.0-37.0) Red Cell Distribution Width 17.3% (12.3-15.4) Platelet Count 202bil/L (150-400) Neutrophils (%) (Auto) 77.9% (40-74) Lymphocytes (%) (Auto) 10.4% (14-46) Monocytes (%) (Auto) 9.3% (4-12) Eosinophils (%) (Auto) 0.8% (0-5) Basophils (%) (Auto) 1.5% (0-3) Phosphorus Level 5.6mg/dL (2.5-4.9) Magnesium Level 3.2mg/dL (1.6-2.6) Iron Level 52ug/dL (35-150) Total Iron Binding Capacity 235ug/dL (250-450) Percent Iron Saturation 22%sat (15-50) Unsaturated Iron Binding 182.6ug/dL Ferritin 147ng/mL (13-150) Total Bilirubin 1.4mg/dL (0.0-1.2) Aspartate Amino Transf (AST/SGOT) 24U/L (0-50) Alanine Aminotransferase (ALT/SGPT) 13U/L (0-32) Alkaline Phosphatase 108U/L (25-165) Total Protein 6.6g/dL (6.4-8.4) Albumin 3.7g/dL (3.4-5.0) Result Diagram: 02/06/179 02/06/179 Cardiac Echo Impressions Patient Name: KAMI PACHECO MR#: [id number] Location: CCU Ordering Phys: Madhu Quintero DO Date of Service: 02/05/[address] [place] [address] Echocardiogram Report Name: KAMI PACHECO JStudy Date: 02/05/2017 Height: 63 in Hospital Exam Location: [facility] Weight: 149 lb Gender: Female BSA: 1.7 m2 : 1940 Age: 76 yrs BP: 98/5 5 mmHg Reason For Study: Congestive Heart Failure Ordering Physician: HOSPITALIST [facility] Performed By: Aamir Haynes Referring Physician: MADHU QUINTERO Interpretation Summary 1. Normal left ventricular size with concentric hypertrophy (wall thicknesses 1.4 cm). Difficult to assess EF given significant dyssynchrony, but appears at least moderately reduced 2. Severely dilated right ventricle with at least mildly reduced function. Severe tricuspid regurgitation. The estimated RVSP is 80 mm Hg (with evidence for elevated right atrial pressures). 3. The prosthetic aortic valve appears well seated and appears to be functioning well. Trace insufficiency. 4. Findings consistent with mitral stenosis (the gradient was measured in the range of 10-11 mm Hg) There is no old study for comparison Procedure: A two-dimensional transthoracic echocardiogram with color flow and Doppler was performed. The study quality was technically adequate. There is no prior echocardiogram noted for this patient. The heart rate ranged between 102-124 bpm during the study. Left Ventricle: The left ventricle is normal in size. There is moderate concentric left ventricular hypertrophy. Difficult to accurately assess LV function given dyssynchrony - LV function appears at least moderately reduced. There is a significant dyssynchronous contraction pattern due to the paced rhythm. Flattened septum is consistent with RV pressure/volume overload. Diastolic function could not be accurately assessed due to tachycardia. Right Ventricle: The right ventricle is severely dilated. Right ventricular systolic function is mild to moderately reduced. Atria: Both atria are severely dilated. There is no Doppler evidence for an atrial septal defect. Mitral Valve: There is moderate to severe mitral annular calcification. The mitral valve leaflets are moderately calcified. The mitral valve mean gradient is 10 mmHg. There is mild to moderate mitral regurgitation. Difficult to accurately assess mitral regurgitation. Aortic Valve: There is a bioprosthetic aortic valve. Peak velocity 3.2 m/s (with some beat to beat variability). There is trace aortic regurgitation. Tricuspid Valve: The tricuspid valve leaflets are thin and pliable. Poor coaptation. There is severe tricuspid regurgitation. The right ventricular systolic pressure is estimated at 80 mmHg assuming a right atrial pressure of 15 mm Hg. Pulmonic Valve: The pulmonic valve leaflets are thin and pliable; valve motion is normal. There is mild to moderate pulmonic regurgitation. Great Vessels: The aortic root is normal size. The ascending aorta is dilated at 4.2 cm. The pulmonary artery is not well visualized, but is probably normal size. The IVC is dilated (diameter is greater than 2.1 cm) and it collapses less than 50% with a sniff. This suggests a high right atrial pressure of 15 mm Hg. Pericardium/ Pleura There is no pericardial effusion. There is a moderately large left-sided pleural effusion. MMode/2D Measurements & Calculations LVIDd: 4.1 cm RA long axis LVOT diam LVIDs: 3.0 cm LA A2 area: 40.4 cm FS: 26.9 % LA A4 area: 31.1 cm RA area Ao root diam IVSd: 1.4 cm LA length (vol): 7.1 cm LVPWd: 1.4 cm LA vol: 150.2 ml : 36.0 cm asc Aorta LA vol index RA vol Diam: 4.2 cm : 146.ml RA IVC diam: 3.1 cm : 86.1 mm2 LV santo. diameter/BSA LV sys. diameter/BSA RVD1 (basal) RVD2 (mid) (cm/m^2): 2.4 (cm/m^2): 1.7 : 3.6 cm TAPSE: 1.3 cm Doppler Measurements & Calculations Ao V2 max MVA(VTI) TR max omkar MV V2 mean: 155.4 cm/sec : 310.8 cm/sec : 0.89 2m : 405.4 cm/sec MV mean P.9 mmHg Ao max PG TR max PG MV V2 VTI: 50.1 cm : 39.3 mmHg : 65.8 mmHg Ao mean PG PA V2 max : 23.9 mmHg : 167.8 cm/sec LVOT Max Omkar PA mean PG : 96.5 cm/sec : 3.5 mmHg EDISON(I,D): 0.87 cm sev ratio Ao V2 mean LV V1 max PG PA V2 mean EDISON indexed to BSA : 232.7 cm/sec : 80.2 cm/sec (cm^2/m^2): 0.51 Ao V2 VTI: 50.9 cm LV V1 VTI PA pr(Accel) : 16.2 cm : 49.1 mmHg EDISON(V,D): 0.85 cm2 Reading Physician:02:50 PM Assessment & Plan 76yoF with past medical history of ESRD on HD, atrial fibrillation, Bradycardia , CHF, COPD transferred from [place] due to hypotension and acute dyspnea of unknown etiology. 1. Shock, acute, POA -unclear etiology septic vs cardiogenic -dopamine on transfer increased HR afib RVR -start norepinephrine, MAP goal >60 and is continuing with IV norepinephrine for blood pressure support -ECHO ordered -broad spectrum abx, piperacillin-tazobactam, check CT of chest without contrast to further elucidate possible pneumonic infiltrate versus congestive heart failure -MRSA screen pending -possible infectious etiology, left left wound, urinalysis pending, blood cultures pending, abdomen benign no reports of recent diarrhea, -cardiology consulted prior to transfer, recs appreciated -Cardiology has not seen as of yet so have put a phone call in for cardiology consultation -Respiratory PCR is negative 2. Possible NSTEMI, acute and POA - elevated trop in the setting of scott - trop negative at osh, creatinine elevated as well - ASA, no bb d/t hypotension, no acei d/t renal function - lipid panel, hgba1c pending, trend trop - consider heparin gtt after head CT, unknown if patient on oral anticoagulation -obtain records from [facility] 3. CHF exacerbation, acute (likely diastolic), POA -in the setting of shock and newly elevated troponin (WNL at osh) -ECHO in am -unable to diurese at this time d/t BP (currently on norepinephrine) -reviewed EKG and some concern for ST elevation in anterior leads, discussed with Dr. Huff, will continue to monitor -repeat EKG in am with normalization of potassium, PRN with chest pain -Check CT of chest without contrast to further elucidate 4. Dyspnea, acute. POA. No hypoxia or hypercarbia. -not symptomatic at this time -2/2 fluid overload, pna, pe not ruled out 5. Metabolic encephalopathy, acute -possible a/w elevated BUN, CVA, hypotension, sepsis -CT head non-contrast when stable -treatment for shock and chronic conditions as described 6. Hyperkalemia, acute -secondary to renal function -insulin, glucose, kayexalate, bicarb given -nephrology consulted, recs appreciated -Potassium remains elevated will give another dose of by mouth Kayexalate and further recommendations per nephrology -Repeat potassium level at 1 PM today 7. Hyponatremia, acute -mild -continue to monitor 8. Right lower extremity wound, chronic -likely acute on chronic change with purulent drainage, concern for pseudomonas infection vs colonization -start piperacillin-tazobactam -wound consult 9. Chronic kidney disease stage IV with a GFR of 16. -unknown baseline - likely acute on chronic -dialysis fistula placed 2-3 years ago, dialysis not initiated -labs pending on admission -nephrology consulted prior to transfer, recs appreciated 10. Paroxysmal atrial fibrillation, chronic -as per report by daughter, not currently anticoagulated -INR at OSH WNL 11. CAD, chronic -past history of CABG GI Prophylaxis: Proton Pump Inhibitor VTE Mechanical Devices: Intermittant Pneumatic CD Resuscitation Status: CPR: Attempt Resuscitation (presumed full code. no information avail regarding code status) Time spent 40 minutes Monse Cruz MD Feb 06, 2017 07:49
[2017-02-06 10:56] VITALS: BP 94/61; PULSE 96; RESP 18; O2SAT 95
--- NOTE | 2017-02-06 11:11 | NUR ---
Palliative Care Palliative Care received order from Dr Longoria (Nephrology) 02/05/17 (late in day) to assist with goals of care. Patient is a 76 year old woman with ESRD on HD, atrial fibrillation, Bradycardia, CHF, COPD. She was transferred from [facility] due to hypotension and acute dyspnea. Patient was admitted 02/05/17. Patient lives home with . Harley Torres () [phone] Barb Diaz (daughter) [phone] Palliative Care to follow. Re Beal
--- NOTE | 2017-02-06 11:11 | PCM.PNNEPH ---
Subjective Date of Service Feb 06, 2017 Subjective Patient remains hypotensive, required vasopressor. Persistent hyperkalemia noted. Pending family meeting today. Again patient does not to proceed with renal replacement therapy at the moment. Exam Vital Signs Vital Sign - Last Date Time Temp Pulse Resp B/P Pulse Ox O2 Delivery O2 Flow Rate FiO2 02/06/17 10:56 36.9 96 18 94/61 95 Room Air 95 02/06/17 07:47 1.00 Intake and Output 02/05/17 02/05/17 02/06/17 Cumulative From/Thru 15:00 23:00 07:00 02/05/17 01:05 - 02/06/17 06:20 Intake Total 515 ml 514 ml 1309 ml Output Total 300 ml 500 ml 900 ml Balance 215 ml 14 ml 409 ml Intake Oral 50 ml 170 ml IV Total 465 ml 514 ml 1139 ml Output Urine Total 300 ml 500 ml 900 ml # Bowel Movements 0 Exam General appearance: Awake and alert today, lying in bed comfortably. Oriented x3. HEENT: Mild pallor. No jaundice. Positive for JVD. No lymphadenopathy. No thyroid enlargement. Heart: Irregular rhythm. Tachycardic. Systolic murmur noted. Lungs: Equal breath sounds bilaterally. Rales at the bases. Abdomen: Soft. Active bowel sounds. No hepatosplenomegaly. Extremities: No edema or cyanosis. Positive for flapping tremors, positive for generalized twitching. Left AV fistula with good thrill and bruit. Lab and Diagnostics Result Diagram: 02/06/17 0305 02/06/17 030 Cardiac Echo Impressions Patient Name: KAMI PACHECO MR#: [id number] Location: CCU Ordering Phys: Madhu Quintero DO Date of Service: 02/05/[address] [address] Echocardiogram Report Name: KAMI PACHECO JStudy Date: 02/05/2017 Height: 63 in Hospital Exam Location: [facility] Weight: 149 lb Gender: Female BSA: 1.7 m2 : 1940 Age: 76 yrs BP: 98/5 5 mmHg Reason For Study: Congestive Heart Failure [facility]ing Phys[facility] Performed By: Aamir Haynes Referring Physician: MADHU QUINTERO Interpretation Summary 1. Normal left ventricular size with concentric hypertrophy (wall thicknesses 1.4 cm). Difficult to assess EF given significant dyssynchrony, but appears at least moderately reduced 2. Severely dilated right ventricle with at least mildly reduced function. Severe tricuspid regurgitation. The estimated RVSP is 80 mm Hg (with evidence for elevated right atrial pressures). 3. The prosthetic aortic valve appears well seated and appears to be functioning well. Trace insufficiency. 4. Findings consistent with mitral stenosis (the gradient was measured in the range of 10-11 mm Hg) There is no old study for comparison Procedure: A two-dimensional transthoracic echocardiogram with color flow and Doppler was performed. The study quality was technically adequate. There is no prior echocardiogram noted for this patient. The heart rate ranged between 102-124 bpm during the study. Left Ventricle: The left ventricle is normal in size. There is moderate concentric left ventricular hypertrophy. Difficult to accurately assess LV function given dyssynchrony - LV function appears at least moderately reduced. There is a significant dyssynchronous contraction pattern due to the paced rhythm. Flattened septum is consistent with RV pressure/volume overload. Diastolic function could not be accurately assessed due to tachycardia. Right Ventricle: The right ventricle is severely dilated. Right ventricular systolic function is mild to moderately reduced. Atria: Both atria are severely dilated. There is no Doppler evidence for an atrial septal defect. Mitral Valve: There is moderate to severe mitral annular calcification. The mitral valve leaflets are moderately calcified. The mitral valve mean gradient is 10 mmHg. There is mild to moderate mitral regurgitation. Difficult to accurately assess mitral regurgitation. Aortic Valve: There is a bioprosthetic aortic valve. Peak velocity 3.2 m/s (with some beat to beat variability). There is trace aortic regurgitation. Tricuspid Valve: The tricuspid valve leaflets are thin and pliable. Poor coaptation. There is severe tricuspid regurgitation. The right ventricular systolic pressure is estimated at 80 mmHg assuming a right atrial pressure of 15 mm Hg. Pulmonic Valve: The pulmonic valve leaflets are thin and pliable; valve motion is normal. There is mild to moderate pulmonic regurgitation. Great Vessels: The aortic root is normal size. The ascending aorta is dilated at 4.2 cm. The pulmonary artery is not well visualized, but is probably normal size. The IVC is dilated (diameter is greater than 2.1 cm) and it collapses less than 50% with a sniff. This suggests a high right atrial pressure of 15 mm Hg. Pericardium/ Pleura There is no pericardial effusion. There is a moderately large left-sided pleural effusion. MMode/2D Measurements & Calculations LVIDd: 4.1 cm RA long axis LVOT diam LVIDs: 3.0 cm LA A2 area: 40.4 cm FS: 26.9 % LA A4 area: 31.1 cm RA area Ao root diam IVSd: 1.4 cm LA length (vol): 7.1 cm LVPWd: 1.4 cm LA vol: 150.2 ml : 36.0 cm asc Aorta LA vol index RA vol Diam: 4.2 cm : 146.ml RA IVC diam: 3.1 cm : 86.1 mm2 LV santo. diameter/BSA LV sys. diameter/BSA RVD1 (basal) RVD2 (mid) (cm/m^2): 2.4 (cm/m^2): 1.7 : 3.6 cm TAPSE: 1.3 cm Doppler Measurements & Calculations Ao V2 max MVA(VTI) TR max omkar MV V2 mean: 155.4 cm/sec : 310.8 cm/sec : 0.89 2m : 405.4 cm/sec MV mean P.9 mmHg Ao max PG TR max PG MV V2 VTI: 50.1 cm : 39.3 mmHg : 65.8 mmHg Ao mean PG PA V2 max : 23.9 mmHg : 167.8 cm/sec LVOT Max Omkar PA mean PG : 96.5 cm/sec : 3.5 mmHg EDISON(I,D): 0.87 cm sev ratio Ao V2 mean LV V1 max PG PA V2 mean EDISON indexed to BSA : 232.7 cm/sec : 80.2 cm/sec (cm^2/m^2): 0.51 Ao V2 VTI: 50.9 cm LV V1 VTI PA pr(Accel) : 16.2 cm : 49.1 mmHg EDISON(V,D): 0.85 cm2 Reading Physician:02:50 PM Plan Impression ASSESSMENT: 1. Severe renal insufficiency. Patient had a fistula placement a year ago. 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 Given her cardiac dysfunction, kidney function has gone down significantly. In my opinion I think she has reached end-stage kidney disease. The only way to improve electrolyte derangements is to proceed with dialysis. However the patient has refused this treatment modality. Hence we have consulted palliative care. Pending family meeting in the afternoon. We will continue supportive treatment for now. 2. Hypotension. Sepsis versus cardiogenic shock. 3. Hyperkalemia. 4. History of congestive heart failure with valvular heart disease. 5. Atrial fibrillation. 6. Anemia of chronic kidney disease. 7. Renal osteodystrophy. Isabelle Longoria MD Feb 06, 2017 11:11 Isabelle Longoria MD Feb 06, 2017 11:11
--- NOTE | 2017-02-06 12:00 | NUR ---
Wound Care Dressing and wound care to both right lower leg ulcers, dimensions unchanged. wound bases fibrinous 95%, drainage scant serous. Non excisionally debridement of slough with tissue nippers, min bleeding, dimensions unchanged after debridement of slough. Redressed with hydrogel, moistened [employer], 2x2 gauze and tape, will recheck tomorrow. Stable wounds, no infection.
--- NOTE | 2017-02-06 12:34 | PCM.CONPAL ---
Date of Service Feb 06, 2017 Date of Hospital Admission: Feb 05, 2017 at 00:38 Date of Palliative Consult: Feb 06, 2017 Requesting Provider: Mariana Antunez Reason Palliative Care Consult: Goals of Care Discussion Reason for Consultation Palliative Care received order from Dr Longoria (Nephrology) 02/05/17 ( late in day) to assist with goals of care. Patient is a 76 year old woman with ESRD on HD, atrial fibrillation, Bradycardia, CHF, COPD. She was transferred from [facility] due to hypotension and acute dyspnea. Patient was admitted 02/05/17. Patient lives home with . Harley Torres () [phone] Barb Diaz (daughter) [phone] Hospital Unit @time of consult: Critical Care (room 2013) Palliative Care Recommendation Summary of palliative recommendations: -Symptom management (Pain/other): primarily per Attending Yellow Hospitalist Team, with recommendations from Cardiology, Infectious Disease and Nephrology consultants. -DPOA/Advanced Directives/POLST: 1. Code Status: currently FULL CODE changed to DNR/DNI/comfort care measures today 02/06/17 after meeting with family and patient 2. POLST -new today 02/06/17, signed by patient's daughter and POA, Barb Diaz. Original in paper chart and copies to family. Copy in PC office. FCTM held today with Dr. Monse Cruz, Dr. Audrey Nur, Beatriz Dunlap and four family members listed below during which Dr. Cruz gave clinical update on Mrs. Coles condition from the internal medicine, nephrology and cardiology perspective. Mrs. Mathews heart is end-stage with failure of two valves and it is not pumping well enough to maintain her blood pressure and help her kidneys filter out toxins. Dialysis might help filter more toxins out but cannot remove much fluid because of her low blood pressure. Dialysis would only be a short-term patch for terminal illness of heart failure. Family states Mrs. August does not want dialysis, and Mrs August agrees when counseled at bedside. Mrs. August says she wants to be comfortable and home with Harley if possible. Dr. Nur started comfort care order set (without morphine drip as not needed yet). Will return to [facility] to reassess patient. Prognosis: days to weeks Hospice information visit desired by family with intent to try for hospice at home. -Family/emotional support Harley Torres () [phone] Barb Diaz (daughter) [phone] Monse (daughter) Estella (friend) Problems: (1) Advanced care planning/counseling discussion Status: Acute ICD Code: Z71.89 (2) Palliative care by specialist Status: Acute ICD Code: Z51.5 End of Life Preferences go home and at home with family around her, if possible. Goals of Care comfort care Resuscitation Status Resuscitation Status: DNR/DNI:Do Not Resuscitate/Intubate (presumed full code. no information avail regarding code status) POLST Updates/Changes Previous POLST?: No POLST Last Review Date: Feb 06, 2017 Antibiotics: Determine Use or Limitations Artificially Admin Nutrition: No Artifical Nutrition by Tube POLST Discussed with: Health Care Agent (DPOAHC) POLST Review Outcome: New Form Completed . Advanced Care Planning Address: POLST, Code status change, Comfort care Pain: Mild Symptom management: Constipation Pt History History of Present Illness 76yoF with past medical history of ESRD on HD, atrial fibrillation not on anticoagulation, Bradycardia, CHF, COPD transferred from [place] due to hypotension and acute dyspnea of unknown etiology. Admitted 02/05 for shock, etiology either septic or cardiogenic. Hospital Course: She is on empiric antibiotics (piperacillin-tazobactam), norepinephrine for blood pressure support, work-up undergoing to rule out a NSTEMI, she has a negative head CT (noncontrast) and her chest CT is pending. She has hyperkalemia likely due to poor renal function, that is undergoing correction. Dialysis is being held per family's request. Past Medical History Significant PMH Noted: Atrial fibrillation Allergies Asthma Bradycardia Carpal Tunnel Syndrome CHF COPD DJD Fall Hyperkalemia ESRD, not currently on hemodialysis Surgical History Cardiac valve Fistula Hernia repair Pacemaker CAGB? Family History Patient is unable to give history on admission Social History retired, lives with her Harley in [place] Medications Current Medications: Current Medications Ondansetron HCl 4 to 8 mg Q4H PRN IVPUSH; Start 02/05/17 at 01:05 Senna 2 tablet BID PRN PO; Start 02/05/17 at 01:05 Polyethylene Glycol 17 gm 17 gm DAILY PRN PO; Start 02/05/17 at 01:05 Norepinephrine 8000 mcg/Premix 250 ml @ 6.32 mls/hr 0107 IV; Start 02/05/17 at 01:07; Status UNV Norepinephrine 8000 mcg/Premix 250 ml @ 6.32 mls/hr Q24H IV Last administered on 02/06/17 12:08; Admin Dose 6.32 MLS/HR; Start 02/05/17 at 01:15 Piperacillin Sod/ Tazobactam Sod/ Dextrose/Water 50 ml @ 12.5 mls/hr Q12H IV Last administered on 02/06/17 04:05; Admin Dose 12.5 MLS/HR; Start 02/05/17 at 16:00 Heparin Sodium (Porcine) Per Protocol for a... PRN PRN IVPUSH; Start 02/06/17 at 07:40 Scheduled Allopurinol (Allopurinol) 100 Mg Tablet 100 MG PO DAILY Ascorbic Acid (Vitamin C) 1,000 Mg Tab.chew 1,000 MG PO DAILY Aspirin (Aspirin) 325 Mg Tablet 325 MG PO HS Calcium Polycarbophil (Fiber-Caps) 625 Mg Tablet 625 MG PO DAILY Cyanocobalamin (Vitamin B12) 500 Mcg Tablet 2,000 MCG PO DAILY Losartan Potassium (Losartan Potassium) 25 Mg Tablet 25 MG PO DAILY Magnesium Oxide (Magnesium) 500 Mg Capsule 1,000 MG PO DAILY Sciota-3 Fatty Acids (Fish Oil) 500 Mg Capsule.dr 1,000 MG PO DAILY Pyridoxine (Vitamin B-6) 50 Mg Tablet 200 MG PO DAILY Spironolactone (Spironolactone) 25 Mg Tablet 0.5 TAB PO DAILY Torsemide (Torsemide) 10 Mg Tablet 10 MG PO DAILY Trazodone (Trazodone) 50 Mg Tablet 50 MG PO DIRECTED Ubidecarenone (Coq-10) 100 Mg Capsule 200 MG PO DAILY Scheduled PRN Hydrocodone-Acetaminophen 5-325 mg (Hydrocodone-Acetaminophen 5-325 mg) 1 Each Tablet 1 TAB PO DIRECTED PRN PRN For Pain Objective Findings Exam Vital Sign - Last Date Time Temp Pulse Resp B/P Pulse Ox O2 Delivery O2 Flow Rate FiO2 02/06/17 10:56 36.9 96 18 94/61 95 Room Air 95 02/06/17 07:47 1.00 Intake and Output 02/05/17 02/05/17 02/06/17 Cumulative From/Thru 15:00 23:00 07:00 02/05/17 01:05 - 02/06/17 06:20 Intake Total 515 ml 514 ml 1309 ml Output Total 300 ml 500 ml 900 ml Balance 215 ml 14 ml 409 ml Intake Oral 50 ml 170 ml IV Total 465 ml 514 ml 1139 ml Output Urine Total 300 ml 500 ml 900 ml # Bowel Movements 0 General: Alert, Person, Place, No acute distress HEENT: Atraumatic, EOMI, Scleral Anicteric, Mucous Membr Moist/[place] Heart: Dysrhythmia Present, Systolic Murmur (IV/ and diastolic murmur III/ with radiation of murmurs throughout precordium) Lungs: Diminished (on right side) Abdomen: Bowel Tones x4, Soft, Non Tender Neuro: Follows Commands, Spontaneous Eye Opening, Speech (clear, but speaks only 1-2 syllables), Weakness Lab/Diagnostics Lab and Imaging results reviewed in detail in EMR. Time spent Total time 70 minutes; >50% face to face with patient and/or family, providing counselling regarding plans and recommendations, and in care coordination with his/her medical teams. I also spent an additional 65 minutes counseling for advanced care planning with the patient/the patients family/the surrogate decision maker. Estefania Nur MD Feb 06, 2017 12:34
--- NOTE | 2017-02-06 13:09 | DRSVH ---
PROCEDURE: CT CHEST WITHOUT CONTRAST ([id number]) INDICATIONS: hypotension,abnormal cxr TECHNIQUE: Noncontrast 5 mm thick sections acquired from the pulmonary apices to the posterior costophrenic angl es. 7 mm thick coronal and sagittal MIP reformats were then acquired. For radiation dose reduction, the following was used: automated exposure control, adjustment of mA and/or kV according to patient size. COMPARISON: None. FINDINGS: Image quality: Excellent. Lungs and pleura: Small bilateral pleural effusions are present. No pneumothoraces. Mild dependent bi lateral lower lobe air space opacity is present, consistent with atelectasis versus pneumonia. Centra l and peripheral airways are patent and normal in caliber. Mediastinum: Heart size is enlarged. There is calcification of the coronary vasculature. No pericard ial effusion. No mediastinal adenopathy by size criteria. Thoracic aorta and central pulmonary leda samuel are normal in size. Esophagus is normal in caliber. No hiatal hernia. Bones and chest wall: No suspicious bony lesions. No vertebral body compression fractures. No axil ibrahima or supraclavicular adenopathy by size criteria. Thyroid gland demonstrates an exophytic 18 mm d iameter nodule protruding posteriorly from the left lobe. Abdomen: Visualized upper abdominal solid organs and bowel loops appear normal in the absence of con trast. IMPRESSION: 1. Small bilateral pleural effusions. Mild dependent bilateral lower lobe atelectasis versus pneumoni a 2. Cardiomegaly. Coronary artery disease. 3. Small amount of ascites. 4. Left thyroid nodule, which could be further assessed with ultrasound, if clinically indicated Dictated by: Mikki Neal M.D. on 02/06/2017 at 13:05 Approved by: Mikki Neal M.D. on 02/06/2017 at 13:08
[2017-02-06] MEDS ORDERED: Artificial Tears 15 mL Ophthalmic Solution AFFECT_EYE PRN (14:10)
[2017-02-06] MEDS ORDERED: Haloperidol 5 mg/mL Inj IVPUSH PRN (14:10)
[2017-02-06] MEDS ORDERED: Atropine 1% 5 mL Ophthalmic Solution PO PRN (14:10)
--- NOTE | 2017-02-06 14:35 | NUR ---
Palliative care note [facility] D/A: Family conference today with pt spouse Harley, her children Yumiko and Monse and family friend Estella as well as Dr.s Cruz and Boom. Note that Yumiko is knowledgeable about pt condition and appears to work as a caregiver. She has been attending classes about dialysis with her mother. Yumiko is back up DPOA to pt spouse Harley. She is the menswear salesperson for family and can be reached at [phone]. Discuss at great length pt heart failure and failing kidneys. Yumiko is most aware of the difficulty in impacting kidney function while trying not to negatively impact her cardiac status. It emerges that pt had indicated that she would not wish to be on dialysis. Discuss with pt and Dr. Nur and Yumiko. Pt to be taken off pressers and moved out of CCU. Dr. Nur fills out POLST for pt with Yumiko and she is made DNR/DNI comfort care. Family agrees to [facility] info visit. Family aware that pt could pass away here or might be able to be discharged on hospice. Phone call to Tamie at Hospice. She will arrange for info visit for 02/07/17 and will call pt dtr Yumiko to arrange. Have left phone message for Nneka perrin in regards to plan. P: Palliative to continue to follow. Beatriz GARDINER, CCM
--- NOTE | 2017-02-06 15:47 | NUR ---
levophed/CT chest/family conference levophed is at 0.25mcg/kg/min on assessment, plan to wean as tolerated. 1100 CT chest complete. 1300 Family conference. 1400 pt code status updated, family and patient want palliative care. Levophed cut in half 1430 levo weaned off, palliative care orders initiated.
[2017-02-06 17:27] VITALS: PULSE 110; RESP 16; O2SAT 98
--- NOTE | 2017-02-06 19:17 | PCM.ADCARE ---
Advance Care Planning Note Purpose of Encounter: To discuss Goals of medical care given patient's current medical problems. Parties in Attendance: Palliative care, Dr. Audrey Be, Dr. Monse Cruz, hospitalist, Beatriz Farrell with palliative care. In addition there were 4 family members present which included 2 daughters, April and Monse and patient's , Harley. Further discussions occurred with Dr. Estefania Acosta and family at patient's bedside with patient. Decisional Capacity: Family members and patient had decisional capacity. Subjective: Discussion included the patient's poor heart function at this time. And the discussion with cardiology Dr. Kasper who had read her current echocardiogram revealed that there were no interventions to particularly improve her heart function. Patient also had progressive renal failure and at this point significant hyperkalemia which is not responsive to medication therapy. Objective: Current Medications Ondansetron HCl 4 to 8 mg Q4H PRN IVPUSH; Start 02/05/17 at 01:05; Stop at 14:13; Status DC Senna 2 tablet BID PRN PO; Start 02/05/17 at 01:05; Stop 02/06/17 at 14:13; Status DC Polyethylene Glycol 17 gm 17 gm DAILY PRN PO; Start 02/05/17 at 01:05; Stop at 14:13; Status DC Norepinephrine 8000 mcg/Premix 250 ml @ 6.32 mls/hr 0107 IV; Start 02/05/17 at 01:07; Status UNV Norepinephrine 8000 mcg/Premix 250 ml @ 6.32 mls/hr Q24H IV Last administered on 02/06/17t 12:08; Admin Dose 6.32 MLS/HR; Start 02/05/17 at 01:15; Stop at 14:13; Status DC Piperacillin Sod/ Tazobactam Sod/ Dextrose/Water 50 ml @ 12.5 mls/hr Q12H IV Last administered on 02/06/17 04:05; Admin Dose 12.5 MLS/HR; Start 02/05/17 at 16:00; Stop 02/06/17 at 14:13; Status DC Heparin Sodium (Porcine) Per Protocol for a... PRN PRN IVPUSH; Start 02/06/17 at 07:40; Stop 02/06/17 at 14:13; Status DC Morphine Sulfate 1 mg Q1H PRN IVPUSH Last administered on 02/06/17t 17:19; Admin Dose 1 MG; Start 02/06/17 at 14:10 Lorazepam 1 mg Q1H PRN IVPUSH; Start 02/06/17 at 14:10 Haloperidol Lactate Start with 1 mg, if not effective ... Q1H PRN IVPUSH; Start 02/06/17 at 14:10 Bisacodyl 10 mg DAILY PRN RC; Start 02/06/17 at 14:10 Atropine Sulfate Start with 2 drops, if ... Q1H PRN PO; Start 02/06/17 at 14:10 Artificial Tears 1 drop Q1H PRN AFFECT_EYE; Start 02/06/17 at 14:10 Laboratory Tests 72 Hours Test 02/05/17 01:20 02/05/17 02:25 02/05/17 07:10 02/05/17 12:20 White Blood Count 5.1th/mm3 (3.8-10.1) Red Blood Count 2.88mil/mm3 (3.90-5.20) Hemoglobin 8.8g/dL (12.0-15.6) Hematocrit 29.4% (35.0-46.0) Mean Corpuscular Volume 102.1fL (81-100) Mean Corpuscular Hemoglobin 30.6pg (27.0-35.0) Mean Corpuscular Hemoglobin Concent 29.9% (32.0-37.0) Red Cell Distribution Width 17.0% (12.3-15.4) Platelet Count 115bil/L (150-400) Neutrophils (%) (Auto) 89.5% (40-74) Lymphocytes (%) (Auto) 4.4% (14-46) Monocytes (%) (Auto) 5.1% (4-12) Eosinophils (%) (Auto) 0.2% (0-5) Basophils (%) (Auto) 0.6% (0-3) Prothrombin Time 12.7sec (8.1-12.5) Prothromb Time International Ratio 1.18ratio Activated Partial Thromboplast Time 30.5sec (22.8-33.0) Sodium Level 132mEq/L (134-144) 134mEq/L (134-144) Potassium Level 5.8mEq/L (3.5-5.2) 6.0mEq/L (3.5-5.2) Chloride Level 95mEq/L (97-108) 95mEq/L (97-108) Carbon Dioxide Level 19mmol/L (18-29) 22mmol/L (18-29) Blood Urea Nitrogen 72mg/dL (8-27) 74mg/dL (8-27) Creatinine 3.93mg/dL (0.57-1.00) 4.13mg/dL (0.57-1.00) Estimat Glomerular Filtration Rate 16mL/min (>59) 15mL/min (>59) Glucose Level 108mg/dL (60-99) 125mg/dL (60-99) Hemoglobin A1c 5.4% (4.8-5.6) Lactic Acid Level 1.1mmol/L (0.4-2.0) Calcium Level 8.5mg/dL (8.5-10.1) 8.8mg/dL (8.5-10.1) Magnesium Level 3.3mg/dL (1.6-2.6) Total Bilirubin 1.2mg/dL (0.0-1.2) Aspartate Amino Transf (AST/SGOT) 25U/L (0-50) Alanine Aminotransferase (ALT/SGPT) 12U/L (0-32) Alkaline Phosphatase 107U/L (25-165) Troponin T 0.074ug/L (0.0-0.011) 0.158ug/L (0.0-0.011) Pro-B-Type Natriuretic Peptide 7408pg/mL (0-738) Total Protein 6.6g/dL (6.4-8.4) Albumin 3.7g/dL (3.4-5.0) Prealbumin 14mg/dL (20-40) Procalcitonin 0.31ng/mL (0.00-0.08) Urine Color Dark yellow (YELLOW) Urine Appearance Slightly cloudy Urine pH 5.0 (5.0-8.0) Urine Specific [place] 1.021 (1.003-1.035) Urine Protein Tracemg/dL (NEG,TRACE) Urine Glucose (UA) Negativemg/dL (NEGATIVE) Urine Ketones Tracemg/dL (NEGATIVE) Urine Occult Blood Negative (NEGATIVE) Urine Nitrite Negative (NEGATIVE) Urine Bilirubin Negative (NEGATIVE) Urine Urobilinogen Normalmg/dL (NORMAL) Urine Leukocyte Esterase Negative (NEGATIVE) Urine RBC 0-2/hpf (0-2) Urine WBC 0-5/hpf (0-5) Urine Epithelial Cells Few/hpf (NONE-MOD) Urine Crystals Amorphous urates (NONE Urine Bacteria None/hpf (NONE-FEW) Urine Hyaline Casts 5/20/lpf (NONE) Urine Granular Casts None seen (NONE SEEN) Urine Waxy Casts None seen (NONE SEEN) Urine Red Blood Cell Casts None seen (NONE SEEN) Urine White Blood Cell Casts None seen (NONE SEEN) Urine Mucus None seen (None Seen) Urine Trichomonas None seen (NONE SEEN) Urine Yeast None (NONE SEEN) Urine Culture Reflexed Not indicated Test 02/05/17 17:50 02/06/17 03:02 02/06/17 03:05 02/06/17 08:40 Sodium Level 134mEq/L (134-144) 134mEq/L (134-144) Potassium Level 5.3mEq/L (3.5-5.2) 5.9mEq/L (3.5-5.2) Chloride Level 95mEq/L (97-108) 95mEq/L (97-108) Carbon Dioxide Level 22mmol/L (18-29) 18mmol/L (18-29) Blood Urea Nitrogen 75mg/dL (8-27) 75mg/dL (8-27) Creatinine 4.27mg/dL (0.57-1.00) 4.00mg/dL (0.57-1.00) Estimat Glomerular Filtration Rate 14mL/min (>59) 16mL/min (>59) Glucose Level 154mg/dL (60-99) 133mg/dL (60-99) Calcium Level 8.6mg/dL (8.5-10.1) 8.5mg/dL (8.5-10.1) Procalcitonin 0.76ng/mL (0.00-0.08) White Blood Count 7.6th/mm3 (3.8-10.1) Red Blood Count 3.47mil/mm3 (3.90-5.20) Hemoglobin 10.7g/dL (12.0-15.6) Hematocrit 34.6% (35.0-46.0) Mean Corpuscular Volume 99.7fL (81-100) Mean Corpuscular Hemoglobin 30.8pg (27.0-35.0) Mean Corpuscular Hemoglobin Concent 30.9% (32.0-37.0) Red Cell Distribution Width 17.3% (12.3-15.4) Platelet Count 202bil/L (150-400) Neutrophils (%) (Auto) 77.9% (40-74) Lymphocytes (%) (Auto) 10.4% (14-46) Monocytes (%) (Auto) 9.3% (4-12) Eosinophils (%) (Auto) 0.8% (0-5) Basophils (%) (Auto) 1.5% (0-3) Phosphorus Level 5.6mg/dL (2.5-4.9) Magnesium Level 3.2mg/dL (1.6-2.6) Iron Level 52ug/dL (35-150) Total Iron Binding Capacity 235ug/dL (250-450) Percent Iron Saturation 22%sat (15-50) Unsaturated Iron Binding 182.6ug/dL Ferritin 147ng/mL (13-150) Total Bilirubin 1.4mg/dL (0.0-1.2) Aspartate Amino Transf (AST/SGOT) 24U/L (0-50) Alanine Aminotransferase (ALT/SGPT) 13U/L (0-32) Alkaline Phosphatase 108U/L (25-165) Troponin T 0.141ug/L (0.0-0.011) Total Protein 6.6g/dL (6.4-8.4) Albumin 3.7g/dL (3.4-5.0) D-Dimer 1.7mg/L (<0.50) Test 02/06/17 13:59 Potassium Level 5.7mEq/L (3.5-5.2) Troponin T 0.119ug/L (0.0-0.011) Goals of Care Determinations: Patient's previous wishes to not undergo hemodialysis. Patient and family's wishes to provide comfort and not pursue any interventions will not change final outcome and the long-term. Plan: We will proceed with comfort care and follow palliative care recommendations. We will also obtain hospice consultation. CODE STATUS: DNR/DNI, comfort care only Time Spent Adv.Care Plannin minutes Adv. Care Plan Documenation: Patient wishes DNR/DNI and comfort care only. We will also get hospice consultation. We will proceed with titrating off her norepinephrine for blood pressure support. Will not proceed with any further blood draws or vital sign measurements except if deemed for comfort. Monse Cruz MD Feb 06, 2017 19:17
[2017-02-06 20:18] VITALS: BP 100/47; PULSE 75; RESP 16; O2SAT 96
--- NOTE | 2017-02-07 01:50 | NUR ---
Transfer Patient arrived from [facility] at 1999. Patient A&OX3. Vitals stable. Tang catheter patent and draining. Patient on comfort care. Report received from Mirna BLOOM.
[2017-02-07] MEDS ORDERED: LORazepam 0.5 mg Tablet PO PRN (08:55)
[2017-02-07] MEDS ORDERED: Haloperidol 2 mg/mL 5 mL Oral Conc Liquid PO PRN (08:55)
[2017-02-07] MEDS ORDERED: Morphine 20 mg/mL Oral Syringe SL/PO PRN (08:55)
--- NOTE | 2017-02-07 08:55 | PCM.PALLBR ---
Palliative Care Recommendation Summary of palliative recommendations: -Symptom management (Pain/other): medication list has been reduced to include cardiac meds, symptom management meds to be used prn. 1. Morphine converted today from IV to po concentrate 2mg po q 4 hours prn SOB 2. Ativan converted today from IV to po 0.5mg q 4 hours prn anxiety, SOB. 3. Haldol converted today from IV to po 1mg q 6 hours prn agitation, restlessness, nausea. -DPOA/Advanced Directives/POLST: 1. Code Status: currently FULL CODE changed to DNR/DNI/comfort care measures 02/06/17 after meeting with family and patient 2. POLST -new form, signed 02/06/17 by patient's daughter and Barb OCHOA. Original in paper chart and copies to family. Copy in PC office. 02/06: FCTM held with Dr. Monse Cruz, Dr. Audrey Nur, Beatriz Dunlap and four family members listed below during which Dr. Cruz gave clinical update on Mrs. Torres's condition from the internal medicine, nephrology and cardiology perspective. 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 Dialysis might help filter more toxins out but cannot remove much fluid because of her low blood pressure. Dialysis would only be a short-term patch for terminal illness of heart failure. Family states Mrs. August does not want dialysis, and Mrs August agrees when counseled at bedside. Mrs. August says she wants to be comfortable and home with Harley if possible. Dr. Nur started comfort care order set 02/06 (no morphine drip as not needed by patient). 02/07: After seeing patient on follow-up today, I would extend my prognosis for patient from "days to weeks" to "weeks to months." Family will have a hospice informational visit today with [facility] representatives. Plan is to try to get patient back to her home with hospice care there. -Family/emotional support: Harley Torres () [phone] Barb Diaz (daughter) [phone] Monse (daughter) Estella (friend) Problems: (1) Advanced care planning/counseling discussion Status: Acute ICD Code: Z71.89 (2) Palliative care by specialist Status: Acute ICD Code: Z51.5 End of Life Preferences go home and at home with family around her, if possible. Goals of Care comfort care Resuscitation Status Resuscitation Status: DNR/DNI:Do Not Resuscitate/Intubate (presumed full code. no information avail regarding code status) POLST Updates/Changes Previous POLST?: No POLST Last Review Date: Feb 06, 2017 Antibiotics: Determine Use or Limitations Artificially Admin Nutrition: No Artifical Nutrition by Tube POLST Discussed with: Health Care Agent ([facility]PO[facility]) POLST Review Outcome: New Form Completed Total time 35 minutes; >50% face to face with patient and/or family, providing counselling regarding plans and recommendations, and in care coordination with his/her medical teams. I also spent an additional [ ] minutes counseling for advanced care planning with the patient/the patients family/the surrogate decision maker. Palliative Brief Note Date of Service Feb 07, 2017 . Patient Identification: [id number] with past medical history of ESRD on HD, atrial fibrillation not on anticoagulation, Bradycardia, CHF, COPD transferred from [place] due to hypotension and acute dyspnea of unknown etiology. Admitted 02/05 for shock, now thought to be cardiogenic etiology. Hospital Course: She was started on empiric antibiotics (piperacillin-tazobactam ), norepinephrine for blood pressure support but was stopped 02/06. Her work-up ruled out a NSTEMI. She has had hyperkalemia not responsive to kayexelate and likely due to poor renal function, that has been corrected. Dialysis is being held per family's request. After lengthy counseling with family 02/06, the decision was made to pursue comfort goals and discharge patient home with hospice care for end-stage heart failure. On morning rounds today, pt is alert and reports feeling somewhat better now that she is out of CCU in a floor room. She asks to sit in a chair next to her bed for comfort. She is receiving additional food from cafeteria at her request. Diet unrestricted with comfort goals in mind for pleasure eating. Estefania Nur MD Feb 07, 2017 08:55 Estefania Nur MD Feb 07, 2017 08:55
--- NOTE | 2017-02-07 10:24 | NUR ---
Palliative care note D/A: Phone call this am to [facility], prior to rounds. [facility] was not able to discuss with dtr and make info visit plans. Spoke to Padmini ([facility]) who can see pt today at 1200. Left message for dtr Yumiko at 0915 at [phone] regarding 1200 time and asked her to call back to this workers number. [id number] another msg for Yumiko about info visit-no reply yet. Veronica VICENTE is aware we are attempting to reach family to confirm time of [facility] info visit. Have also talked to Padmini again and given her contact info for pt dtr Yumiko. This worker unavailable from about [id number] at another [facility]. Padmini to call family if she does not hear back from this worker prior to 1100. P: Palliative to follow as needed. Beatriz [facility] Addendum: 02/07/17 at 1032 by IRVING CARUSO PC note amendment Correction-ATTORNEY GENERAL aware of [facility] info visit work is Klarissa VICENTE. GWENDOLYN Addendum: 02/07/17 at 1402 by IRVING CARUSO PC note amendment Able to confirm with family member Yumiko that 1200 will work for them. ( This worker saw Yumiko in the hallway of the [facility].) Phone call to Padmini at [facility] ( [phone]) to confirm. Beatriz GARDINER CCM Addendum: 02/07/17 at 1525 by IRVING TOLLIVER PC note amendment VM left for Padmini from [facility] to discern result of [facility] info visit. [email or web address] May aware. GWENDOLYN Addendum: 02/07/17 at 1541 by IRVING CARUSO PC note amendment Phone call from Padmini [facility]. Pt signed consent for care with [facility]. Equipment is being arranged for delivery. Pt is scheduled for open for services on 02/09/17 which is earliest possible opening at this time. There is a possibility of an opening for 02/08/17 but [facility] will not know until 02/08/17. Klarissa VICENTE is aware of above as is Dr. Nur. GWENDOLYN
[2017-02-07] MEDS ORDERED: Polyethylene Glycol (PEG) 17 Gm Powder PO PRN (11:45)
--- NOTE | 2017-02-07 19:07 | NUR ---
Comfort care Pt resting comfortably in room. Up to chair twice today and in w/c once for laps in hallways. Right IJ removed and pt took shower with assistance. Pt declined lunch, but ate a small amount of dinner. No c/o pain.
--- NOTE | 2017-02-07 20:26 | PCM.PNMED ---
Subjective Date of Service Feb 07, 2017 Subjective The patient is independent. She appears to be in good spirits. is in the room appears very sad. Daughter states that they do not have the hospice set up very at home and she would like to take her mom home tomorrow a.m. Patient is asking for something for constipation. States her pain is well controlled and she does not need anything else. Exam Vital Signs Vital Sign - Last Date Time Temp Pulse Resp B/P Pulse Ox O2 Delivery O2 Flow Rate FiO2 02/06/17 20:30 Supplement Oxygen 02/06/17 20:18 36.3 75 16 100/47 96 02/06/17 10:56 95 02/06/17 07:47 1.00 Intake and Output 02/06/17 02/06/17 02/07/17 Cumulative From/Thru 15:00 23:00 07:00 02/05/17 01:05 - 02/07/17 06:02 Intake Total 100 ml 1409 ml Output Total 250 ml 1150 ml Balance -150 ml 259 ml Intake Oral 100 ml 270 ml IV Total 1139 ml Output Urine Total 250 ml 1150 ml # Bowel Movements 0 0 IVs and Medications IV Fluids None Medications Reviewed: Medications were reviewed in detail Lab and Diagnostics Microbiology 02/05/17 Blood Culture - Preliminary, Resulted No growth at 2 days; culture examined... 02/05/17 Adenovirus DNA (PCR) - Final, Complete Not Detected 02/05/17 Coronavirus 229E PCR - Final, Complete Not Detected 02/05/17 Coronavirus HKU1 PCR - Final, Complete Not Detected 02/05/17 Coronavirus NL63 PCR - Final, Complete Not Detected 02/05/17 Coronavirus OC43 PCR - Final, Complete Not Detected 02/05/17 Influenza Type A (PCR) - Final, Complete Not Detected 02/05/17 Influenza Type B (PCR) - Final, Complete Not Detected 02/05/17 Human Metapneumovirus (PCR) (RANDOLPH) - Final, Complete Not Detected 02/05/17 Rhinovirus (PCR)(RANDOLPH) - Final, Complete Not Detected 02/05/17 Parainfluenza Virus Type 1 (PCR) - Final, Complete Not Detected 02/05/17 Parainfluenza Virus Type 2 (PCR) - Final, Complete Not Detected 02/05/17 Parainfluenza Virus Type 3 (PCR) - Final, Complete Not Detected 02/05/17 Parainfluenza Virus Type 4 (NAAT) - Final, Complete Not Detected 02/05/17 Respiratory Syncytial Virus (PCR)OR - Final, Complete Not Detected 02/05/17 Chlamydia pneumoniae (PCR) - Final, Complete Not Detected 02/05/17 Mycoplasma pneumoniae DNA Detection - Final, Complete Result Diagram: 02/06/17 0305 02/06/17 1359 Cardiac Echo Impressions Patient Name: KAMI PACHECO MR#: [id number] Location: CCU Ordering Phys: Madhu Quintero DO Date of Service: 02/05/17 0355 [place] [address] Echocardiogram Report Name: KAMI PACHECO JStudy Date: 02/05/2017 Height: 63 in Hospital Exam Location: [facility] Weight: 149 lb Gender: Female BSA: 1.7 m2 : 1940 Age: 76 yrs BP: 98/5 5 mmHg Reason For Study: Congestive Heart Failure Ordering Physician: HOSPITALIST [facility] Performed By: Aamir Haynes Referring Physician: MADHU QUINTERO Interpretation Summary 1. Normal left ventricular size with concentric hypertrophy (wall thicknesses 1.4 cm). Difficult to assess EF given significant dyssynchrony, but appears at least moderately reduced 2. Severely dilated right ventricle with at least mildly reduced function. Severe tricuspid regurgitation. The estimated RVSP is 80 mm Hg (with evidence for elevated right atrial pressures). 3. The prosthetic aortic valve appears well seated and appears to be functioning well. Trace insufficiency. 4. Findings consistent with mitral stenosis (the gradient was measured in the range of 10-11 mm Hg) There is no old study for comparison Procedure: A two-dimensional transthoracic echocardiogram with color flow and Doppler was performed. The study quality was technically adequate. There is no prior echocardiogram noted for this patient. The heart rate ranged between 102-124 bpm during the study. Left Ventricle: The left ventricle is normal in size. There is moderate concentric left ventricular hypertrophy. Difficult to accurately assess LV function given dyssynchrony - LV function appears at least moderately reduced. There is a significant dyssynchronous contraction pattern due to the paced rhythm. Flattened septum is consistent with RV pressure/volume overload. Diastolic function could not be accurately assessed due to tachycardia. Right Ventricle: The right ventricle is severely dilated. Right ventricular systolic function is mild to moderately reduced. Atria: Both atria are severely dilated. There is no Doppler evidence for an atrial septal defect. Mitral Valve: There is moderate to severe mitral annular calcification. The mitral valve leaflets are moderately calcified. The mitral valve mean gradient is 10 mmHg. There is mild to moderate mitral regurgitation. Difficult to accurately assess mitral regurgitation. Aortic Valve: There is a bioprosthetic aortic valve. Peak velocity 3.2 m/s (with some beat to beat variability). There is trace aortic regurgitation. Tricuspid Valve: The tricuspid valve leaflets are thin and pliable. Poor coaptation. There is severe tricuspid regurgitation. The right ventricular systolic pressure is estimated at 80 mmHg assuming a right atrial pressure of 15 mm Hg. Pulmonic Valve: The pulmonic valve leaflets are thin and pliable; valve motion is normal. There is mild to moderate pulmonic regurgitation. Great Vessels: The aortic root is normal size. The ascending aorta is dilated at 4.2 cm. The pulmonary artery is not well visualized, but is probably normal size. The IVC is dilated (diameter is greater than 2.1 cm) and it collapses less than 50% with a sniff. This suggests a high right atrial pressure of 15 mm Hg. Pericardium/ Pleura There is no pericardial effusion. There is a moderately large left-sided pleural effusion. MMode/2D Measurements & Calculations LVIDd: 4.1 cm RA long axis LVOT diam LVIDs: 3.0 cm LA A2 area: 40.4 cm FS: 26.9 % LA A4 area: 31.1 cm RA area Ao root diam IVSd: 1.4 cm LA length (vol): 7.1 cm LVPWd: 1.4 cm LA vol: 150.2 ml : 36.0 cm asc Aorta LA vol index RA vol Diam: 4.2 cm : 146.ml RA IVC diam: 3.1 cm : 86.1 mm2 LV santo. diameter/BSA LV sys. diameter/BSA RVD1 (basal) RVD2 (mid) (cm/m^2): 2.4 (cm/m^2): 1.7 : 3.6 cm TAPSE: 1.3 cm Doppler Measurements & Calculations Ao V2 max MVA(VTI) TR max omkar MV V2 mean: 155.4 cm/sec : 310.8 cm/sec : 0.89 2m : 405.4 cm/sec MV mean P.9 mmHg Ao max PG TR max PG MV V2 VTI: 50.1 cm : 39.3 mmHg : 65.8 mmHg Ao mean PG PA V2 max : 23.9 mmHg : 167.8 cm/sec LVOT Max Omkar PA mean PG : 96.5 cm/sec : 3.5 mmHg EDISON(I,D): 0.87 cm sev ratio Ao V2 mean LV V1 max PG PA V2 mean EDISON indexed to BSA : 232.7 cm/sec : 80.2 cm/sec (cm^2/m^2): 0.51 Ao V2 VTI: 50.9 cm LV V1 VTI PA pr(Accel) : 16.2 cm : 49.1 mmHg EDISON(V,D): 0.85 cm2 Reading Physician:02:50 PM Assessment & Plan 76yoF with past medical history of ESRD on HD, atrial fibrillation, Bradycardia , CHF, COPD transferred from [place] due to hypotension and acute dyspnea of unknown etiology. 1. Shock, acute, POA -unclear etiology septic vs cardiogenic -dopamine on transfer increased HR afib RVR -start norepinephrine, MAP goal >60 and is continuing with IV norepinephrine for blood pressure support -ECHO ordered -broad spectrum abx, piperacillin-tazobactam, check CT of chest without contrast to further elucidate possible pneumonic infiltrate versus congestive heart failure -MRSA screen pending -possible infectious etiology, left left wound, urinalysis pending, blood cultures pending, abdomen benign no reports of recent diarrhea, -cardiology consulted prior to transfer, recs appreciated: Cardiology has not seen the patient as patient was made comfort care only based on family input -Respiratory PCR is negative 2. Possible NSTEMI, acute and POA - elevated trop in the setting of scott - trop negative at osh, creatinine elevated as well - ASA, no bb d/t hypotension, no acei d/t renal function - Initially patient's lipid panel, HbA1c and troponins were ordered and trended - Patient is made comfort measures only 3. CHF exacerbation, acute (likely diastolic), POA -in the setting of shock and newly elevated troponin (WNL at osh -unable to diurese at this time d/t BP (currently on norepinephrine) -reviewed EKG and some concern for ST elevation in anterior leads, discussed with Dr. Huff, will continue to monitor -- The patient is made comfort measures only and all other interventions are stopped 4. Dyspnea, acute. POA. No hypoxia or hypercarbia. -not symptomatic at this time -2/2 fluid overload, pna, pe not ruled out -- The patient is made, comfort measures only and all other interventions are stopped. 5. Metabolic encephalopathy, acute -possible a/w elevated BUN, CVA, hypotension, sepsis -CT head non-contrast when stable -treatment for shock and chronic conditions as described -- Patient is made comfort measures only and all other interventions are stopped 6. Hyperkalemia, acute -secondary to renal function -insulin, glucose, kayexalate, bicarb given -nephrology consulted, recs appreciated -Potassium remains elevated will give another dose of by mouth Kayexalate and further recommendations per nephrology -Patient is comfort measures only other interventions were stopped. 7. Hyponatremia, acute -mild -Patient is comfort measures only all other interventions were stopped as. 8. Right lower extremity wound, chronic -likely acute on chronic change with purulent drainage, concern for pseudomonas infection vs colonization -start piperacillin-tazobactam -wound care was consult' -Patient is comfort measures only all other interventions stopped 9. Chronic kidney disease stage IV with a GFR of 16. -unknown baseline - likely acute on chronic -dialysis fistula placed 2-3 years ago, dialysis not initiated -labs pending on admission -nephrology consulted prior to transfer this is no longer pursued as patient is made comfort measures measures only: 10. Paroxysmal atrial fibrillation, chronic -as per report by daughter, not currently anticoagulated -INR at OSH WNL 11. CAD, chronic -past history of CABG Disposition: The patient is expected to go home on hospice care tomorrow a.m. Pain Evaluation: Adequate Pain Control GI Prophylaxis: Proton Pump Inhibitor VTE Mechanical Devices: Intermittant Pneumatic CD Resuscitation Status: DNR/DNI:Do Not Resuscitate/Intubate (presumed full code. no information avail regarding code status) Melva Coley DO Feb 07, 2017 20:26
[2017-02-07 21:50] VITALS: PULSE 80; RESP 18
--- NOTE | 2017-02-08 04:07 | NUR ---
Comfort care Patient has been periodically alternating from sitting up in bed to standing with assistance. Patient A&Ox3. No IV access. Room air. Tang patent and draining.
--- NOTE | 2017-02-08 08:18 | NUR ---
Social Work- Readiness for Discharge Data: EMR Reviewed. Pt is on day 3 of hospitalization for hypotension. SW received call from Palliative Care SW informing [facility] SW that pt can be signed on to hospice later this morning if pt is discharged. MD has been notified. Pt is medically stable, comfort care only. Pt has been up ambulating in room SBA. Pt to discharge home with hospice with family to transport via POV. SW will continue to follow. Assessment: Pt who will discharge on hospice. Plan: Pt to open with hospice later today. Pt to discharge home with hospice with family to transport via POV. SW will continue to follow. CINTHIA Edward
--- NOTE | 2017-02-08 08:35 | PCM.DIMED ---
Discharge Instructions Date of Service Feb 08, 2017 Dates of Hospitalization Feb 05, 2017 at 00:38 Discharge Diagnosis Discharge Diagnosis Systolic HF, COPD, Afib, ESRD not on dialysis Diet No restrictions Activity No restrictions Call your provider Fever or Chills, Shortness of breath, Bleeding, Chest pain, Vomitting, Excessive diarrhea, Weakness (unilateral) Patient Instructions Please keep the area of ulcer over the right lower leg dry and clean. Follow-up plan You will be seen and followed by [facility]. Melva Coley DO Feb 08, 2017 08:35
[2017-02-08] MEDS ORDERED: Artificial Tears AFFECT_EYE (08:39)
[2017-02-08] MEDS ORDERED: MORP100S5 SL/PO ×2 (08:39→11:09)
[2017-02-08] MEDS ORDERED: ATRO2DRO4 PO ×2 (08:39→11:09)
[2017-02-08] MEDS ORDERED: HALO2ORA PO ×2 (08:39→11:09)
[2017-02-08] MEDS ORDERED: Bisacodyl RC (08:39)
[2017-02-08] MEDS ORDERED: LORA-302 PO ×2 (08:39→11:09)
--- NOTE | 2017-02-08 08:44 | PCM.DC.MED ---
Discharge Summary Date of Service Feb 08, 2017 Dates of Hospitalization Date of Hospital Admission Feb 05, 2017 at 00:38 Date of Discharge: Feb 08, 2017 Providers: Admitting Physician: Madhu Quintero DO Primary Care Physician: Other,Physician Attending Physician: Madhu Quintero DO Diagnosis at Time of Discharge Diagnosis at Time of Discharge Acute resp failure secondary to NSTEMI/CAD and Systolic HF, severe tricuspid dysfunction, COPD, Afib, ESRD not on dialysis, RLE venous stasis ulcer Consultations Palliative care, Cardiology, Nephrology Procedures XRay, CTs & MRIs [facility] [place] [address] Patient Name: KAMI PACHECO MR#: [id number] Location: CCU Ordering Phys: Madhu Quintero DO Date of Service: 02/05/17 0255 PROCEDURE: CT BRAIN WITHOUT CONTRAST ([id number]) INDICATIONS: encephalopathy TECHNIQUE: Noncontrast 4.5 mm thick angled axial sections acquired from the foramen magnum to the vertex, with coronal reformats. COMPARISON: None. FINDINGS: Image quality: Excellent. CSF spaces: Basal cisterns are patent. No extra-axial fluid collections. The ventricles are symmetric in size and shape. Brain: No intracranial bleeds or masses. There is cerebral volume loss for age , with resultant ventricular and sulcal prominence. There are periventricular and deep white matter chronic small vessel ischemic changes. There is intracranial internal carotid artery atherosclerosis. Skull and face: Calvarium and visualized facial bones appear intact, without suspicious lesions. Sinuses: Visualized sinuses and mastoids are clear. IMPRESSION: 1. No acute intracranial findings. 2. Findings likely associated with microvascular ischemic changes. Note: The preliminary [facility] Radiology interpretation and the final report are concordant. Dictated by: Jade Banks M.D. on 02/05/2017 at 9:15 Approved by: Jade Banks M.D. on 02/05/2017 at 9:16 [facility] [place] [address] Patient Name: KAMI PACHECO MR#: [id number] Location: CCU Ordering Phys: Monse Cruz MD Date of Service: 02/06/17 0732 PROCEDURE: CT CHEST WITHOUT CONTRAST ([id number]) INDICATIONS: hypotension,abnormal cxr TECHNIQUE: Noncontrast 5 mm thick sections acquired from the pulmonary apices to the posterior costophrenic angles. 7 mm thick coronal and sagittal MIP reformats were then acquired. For radiation dose reduction, the following was used: automated exposure control, adjustment of mA and/or kV according to patient size. COMPARISON: None. FINDINGS: Image quality: Excellent. Lungs and pleura: Small bilateral pleural effusions are present. No pneumothoraces. Mild dependent bilateral lower lobe air space opacity is present , consistent with atelectasis versus pneumonia. Central and peripheral airways are patent and normal in caliber. Mediastinum: Heart size is enlarged. There is calcification of the coronary vasculature. No pericardial effusion. No mediastinal adenopathy by size criteria. Thoracic aorta and central pulmonary arteries are normal in size. Esophagus is normal in caliber. No hiatal hernia. Bones and chest wall: No suspicious bony lesions. No vertebral body compression fractures. No axillary or supraclavicular adenopathy by size criteria. Thyroid gland demonstrates an exophytic 18 mm diameter nodule protruding posteriorly from the left lobe. Abdomen: Visualized upper abdominal solid organs and bowel loops appear normal in the absence of contrast. IMPRESSION: 1. Small bilateral pleural effusions. Mild dependent bilateral lower lobe atelectasis versus pneumonia 2. Cardiomegaly. Coronary artery disease. 3. Small amount of ascites. 4. Left thyroid nodule, which could be further assessed with ultrasound, if clinically indicated Dictated by: Mikki Neal M.D. on 02/06/2017 at 13:05 Approved by: Mikki Neal M.D. on 02/06/2017 at 13:08 [facility] [place] [address] Patient Name: KAMI PACHECO MR#: [id number] Location: CCU Ordering Phys: Madhu Quintero DO Date of Service: 02/05/17 0149 PROCEDURE: X-RAY CHEST ONE VIEW, PORTABLE ([id number]) INDICATIONS: line placement TECHNIQUE: One view of the chest was acquired. COMPARISON: None. FINDINGS: Surgical changes and devices: Post median sternotomy and dual chamber left cardiac pacer present. Valvular replacement. Right IJ CVL present projected over the mid upper SVC. Lungs and pleura: No pleural effusions or pneumothorax. Interstitium is prominent and there is airspace opacity involving the left lung base. Probable trace left pleural effusion. No pneumothorax. Mediastinum: Mediastinal contours appear normal. Heart size is enlarged. Bones and chest wall: No suspicious bony lesions. Overlying soft tissues appear unremarkable. IMPRESSION: 1. Interstitium is prominent and mild edema is suspected as well as possible pneumonia versus atelectasis involving the left lung base. 2. Place the right IJ CVL. 3. Possible trace left pleural effusion. Dictated by: Mic Carias RRA Interpreted: Abrahan Kidd MD on 02/05/2017 at 9: 26 Transcribed by: RADHA on 02/05/2017 at 9:27 Approved by: Abrahan Kidd M.D. on 02/05/2017 at 17:07 Cardiac Echo Impression Patient Name: KAMI PACHECO MR#: [id number] Location: CCU Ordering Phys: Madhu Quintero DO Date of Service: 02/05/[address] [place] [id number] Echocardiogram Report Name: KAMI PACHECO JStudy Date: 02/05/2017 Height: 63 in Hospital Exam Location: [facility] Weight: 149 lb Gender: Female BSA: 1.7 m2 : 1940 Age: 76 yrs BP: 98/5 5 mmHg Reason For Study: Congestive Heart Failure Ordering Physician: HOSPITALIST [facility] Performed By: Aamir Haynes Referring Physician: MADHU QUINTERO Interpretation Summary 1. Normal left ventricular size with concentric hypertrophy (wall thicknesses 1.4 cm). Difficult to assess EF given significant dyssynchrony, but appears at least moderately reduced 2. Severely dilated right ventricle with at least mildly reduced function. Severe tricuspid regurgitation. The estimated RVSP is 80 mm Hg (with evidence for elevated right atrial pressures). 3. The prosthetic aortic valve appears well seated and appears to be functioning well. Trace insufficiency. 4. Findings consistent with mitral stenosis (the gradient was measured in the range of 10-11 mm Hg) There is no old study for comparison Procedure: A two-dimensional transthoracic echocardiogram with color flow and Doppler was performed. The study quality was technically adequate. There is no prior echocardiogram noted for this patient. The heart rate ranged between 102-124 bpm during the study. Left Ventricle: The left ventricle is normal in size. There is moderate concentric left ventricular hypertrophy. Difficult to accurately assess LV function given dyssynchrony - LV function appears at least moderately reduced. There is a significant dyssynchronous contraction pattern due to the paced rhythm. Flattened septum is consistent with RV pressure/volume overload. Diastolic function could not be accurately assessed due to tachycardia. Right Ventricle: The right ventricle is severely dilated. Right ventricular systolic function is mild to moderately reduced. Atria: Both atria are severely dilated. There is no Doppler evidence for an atrial septal defect. Mitral Valve: There is moderate to severe mitral annular calcification. The mitral valve leaflets are moderately calcified. The mitral valve mean gradient is 10 mmHg. There is mild to moderate mitral regurgitation. Difficult to accurately assess mitral regurgitation. Aortic Valve: There is a bioprosthetic aortic valve. Peak velocity 3.2 m/s (with some beat to beat variability). There is trace aortic regurgitation. Tricuspid Valve: The tricuspid valve leaflets are thin and pliable. Poor coaptation. There is severe tricuspid regurgitation. The right ventricular systolic pressure is estimated at 80 mmHg assuming a right atrial pressure of 15 mm Hg. Pulmonic Valve: The pulmonic valve leaflets are thin and pliable; valve motion is normal. There is mild to moderate pulmonic regurgitation. Great Vessels: The aortic root is normal size. The ascending aorta is dilated at 4.2 cm. The pulmonary artery is not well visualized, but is probably normal size. The IVC is dilated (diameter is greater than 2.1 cm) and it collapses less than 50% with a sniff. This suggests a high right atrial pressure of 15 mm Hg. Pericardium/ Pleura There is no pericardial effusion. There is a moderately large left-sided pleural effusion. MMode/2D Measurements & Calculations LVIDd: 4.1 cm RA long axis LVOT diam LVIDs: 3.0 cm LA A2 area: 40.4 cm FS: 26.9 % LA A4 area: 31.1 cm RA area Ao root diam IVSd: 1.4 cm LA length (vol): 7.1 cm LVPWd: 1.4 cm LA vol: 150.2 ml : 36.0 cm asc Aorta LA vol index RA vol Diam: 4.2 cm : 146.ml RA IVC diam: 3.1 cm : 86.1 mm2 LV santo. diameter/BSA LV sys. diameter/BSA RVD1 (basal) RVD2 (mid) (cm/m^2): 2.4 (cm/m^2): 1.7 : 3.6 cm TAPSE: 1.3 cm Doppler Measurements & Calculations Ao V2 max MVA(VTI) TR max omkar MV V2 mean: 155.4 cm/sec : 310.8 cm/sec : 0.89 2m : 405.4 cm/sec MV mean P.9 mmHg Ao max PG TR max PG MV V2 VTI: 50.1 cm : 39.3 mmHg : 65.8 mmHg Ao mean PG PA V2 max : 23.9 mmHg : 167.8 cm/sec LVOT Max Omkar PA mean PG : 96.5 cm/sec : 3.5 mmHg EDISON(I,D): 0.87 cm sev ratio Ao V2 mean LV V1 max PG PA V2 mean EDISON indexed to BSA : 232.7 cm/sec : 80.2 cm/sec (cm^2/m^2): 0.51 Ao V2 VTI: 50.9 cm LV V1 VTI PA pr(Accel) : 16.2 cm : 49.1 mmHg EDISON(V,D): 0.85 cm2 Reading Physician:02:50 PM Brief History 76yoF with past medical history of ESRD on HD, atrial fibrillation not on anticoagulation, Bradycardia, CHF, COPD transferred from [place] due to hypotension and acute dyspnea of unknown etiology. Admitted 02/05 for shock, etiology either septic or cardiogenic. Hospital Course: She is on empiric antibiotics (piperacillin-tazobactam), norepinephrine for blood pressure support, work-up undergoing to rule out a NSTEMI, she has a negative head CT (noncontrast) and her chest CT is pending. She has hyperkalemia likely due to poor renal function, that is undergoing correction. Dialysis is being held per family's request. Hospital Course 76yoF with past medical history of ESRD on HD, atrial fibrillation, Bradycardia , CHF, COPD transferred from [place] due to hypotension and acute dyspnea of unknown etiology. 1. Shock, acute, POA -unclear etiology septic vs cardiogenic -dopamine on transfer increased HR afib RVR -start norepinephrine, MAP goal >60 and is continuing with IV norepinephrine for blood pressure support -ECHO ordered -broad spectrum abx, piperacillin-tazobactam, check CT of chest without contrast to further elucidate possible pneumonic infiltrate versus congestive heart failure -MRSA screen pending -possible infectious etiology, left left wound, urinalysis pending, blood cultures pending, abdomen benign no reports of recent diarrhea, -cardiology consulted prior to transfer, recs appreciated: Cardiology has not seen the patient as patient was made comfort care only based on family input -Respiratory PCR is negative 2. Possible NSTEMI, acute and POA - elevated trop in the setting of scott - trop negative at osh, creatinine elevated as well - ASA, no bb d/t hypotension, no acei d/t renal function - Initially patient's lipid panel, HbA1c and troponins were ordered and trended - Patient is made comfort measures only 3. CHF exacerbation, acute (likely diastolic), POA -in the setting of shock and newly elevated troponin (WNL at osh -unable to diurese at this time d/t BP (currently on norepinephrine) -reviewed EKG and some concern for ST elevation in anterior leads, discussed with Dr. Huff, will continue to monitor -- The patient is made comfort measures only and all other interventions are stopped 4. Dyspnea, acute. POA. No hypoxia or hypercarbia. -not symptomatic at this time -2/2 fluid overload, pna, pe not ruled out -- The patient is made, comfort measures only and all other interventions are stopped. 5. Metabolic encephalopathy, acute -possible a/w elevated BUN, CVA, hypotension, sepsis -CT head non-contrast when stable -treatment for shock and chronic conditions as described -- Patient is made comfort measures only and all other interventions are stopped 6. Hyperkalemia, acute -secondary to renal function -insulin, glucose, kayexalate, bicarb given -nephrology consulted, recs appreciated -Potassium remains elevated will give another dose of by mouth Kayexalate and further recommendations per nephrology -Patient is comfort measures only other interventions were stopped. 7. Hyponatremia, acute -mild -Patient is comfort measures only all other interventions were stopped as. 8. Right lower extremity wound, chronic -likely acute on chronic change with purulent drainage, concern for pseudomonas infection vs colonization -start piperacillin-tazobactam -wound care was consult' -Patient is comfort measures only all other interventions stopped 9. Chronic kidney disease stage IV with a GFR of 16. -unknown baseline - likely acute on chronic -dialysis fistula placed 2-3 years ago, dialysis not initiated -labs pending on admission -nephrology consulted prior to transfer this is no longer pursued as patient is made comfort measures measures only: 10. Paroxysmal atrial fibrillation, chronic -as per report by daughter, not currently anticoagulated -INR at OSH WNL 11. CAD, chronic -past history of CABG Disposition: The patient is expected to go home on hospice care this a.m. Exam Vital Signs (Last) Date Time Temp Pulse Resp B/P Pulse Ox O2 Delivery O2 Flow Rate FiO2 02/07/17 21:50 80 18 Room Air 02/06/17 20:18 36.3 100/47 96 02/06/17 10:56 95 02/06/17 07:47 1.00 Exam Gen.: No acute distress HEENT normocephalic, atraumatic Heart: 2+ systolic mumur w/ radiaiton to neck Neck: Elevated JVD Ext: 2+ edema Skin: Right lower leg ulcer measuring 5 cm Abd: Obese, non tender Lungs: Diminished in lower lobes Test 02/05/17 01:20 02/05/17 02:25 02/06/17 03:02 02/06/17 03:05 Prothrombin Time 12.7sec (8.1-12.5) Prothromb Time International Ratio 1.18ratio Activated Partial Thromboplast Time 30.5sec (22.8-33.0) Hemoglobin A1c 5.4% (4.8-5.6) Lactic Acid Level 1.1mmol/L (0.4-2.0) Pro-B-Type Natriuretic Peptide 7408pg/mL (0-738) Prealbumin 14mg/dL (20-40) Urine Color Dark yellow (YELLOW) Urine Appearance Slightly cloudy Urine pH 5.0 (5.0-8.0) Urine Specific [place] 1.021 (1.003-1.035) Urine Protein Tracemg/dL (NEG,TRACE) Urine Glucose (UA) Negativemg/dL (NEGATIVE) Urine Ketones Tracemg/dL (NEGATIVE) Urine Occult Blood Negative (NEGATIVE) Urine Nitrite Negative (NEGATIVE) Urine Bilirubin Negative (NEGATIVE) Urine Urobilinogen Normalmg/dL (NORMAL) Urine Leukocyte Esterase Negative (NEGATIVE) Urine RBC 0-2/hpf (0-2) Urine WBC 0-5/hpf (0-5) Urine Epithelial Cells Few/hpf (NONE-MOD) Urine Crystals Amorphous urates (NONE Urine Bacteria None/hpf (NONE-FEW) Urine Hyaline Casts 5/20/lpf (NONE) Urine Granular Casts None seen (NONE SEEN) Urine Waxy Casts None seen (NONE SEEN) Urine Red Blood Cell Casts None seen (NONE SEEN) Urine White Blood Cell Casts None seen (NONE SEEN) Urine Mucus None seen (None Seen) Urine Trichomonas None seen (NONE SEEN) Urine Yeast None (NONE SEEN) Urine Culture Reflexed Not indicated Procalcitonin 0.76ng/mL (0.00-0.08) White Blood Count 7.6th/mm3 (3.8-10.1) Red Blood Count 3.47mil/mm3 (3.90-5.20) Hemoglobin 10.7g/dL (12.0-15.6) Hematocrit 34.6% (35.0-46.0) Mean Corpuscular Volume 99.7fL (81-100) Mean Corpuscular Hemoglobin 30.8pg (27.0-35.0) Mean Corpuscular Hemoglobin Concent 30.9% (32.0-37.0) Red Cell Distribution Width 17.3% (12.3-15.4) Platelet Count 202bil/L (150-400) Neutrophils (%) (Auto) 77.9% (40-74) Lymphocytes (%) (Auto) 10.4% (14-46) Monocytes (%) (Auto) 9.3% (4-12) Eosinophils (%) (Auto) 0.8% (0-5) Basophils (%) (Auto) 1.5% (0-3) Sodium Level 134mEq/L (134-144) Chloride Level 95mEq/L (97-108) Carbon Dioxide Level 18mmol/L (18-29) Blood Urea Nitrogen 75mg/dL (8-27) Creatinine 4.00mg/dL (0.57-1.00) Estimat Glomerular Filtration Rate 16mL/min (>59) Glucose Level 133mg/dL (60-99) Calcium Level 8.5mg/dL (8.5-10.1) Phosphorus Level 5.6mg/dL (2.5-4.9) Magnesium Level 3.2mg/dL (1.6-2.6) Iron Level 52ug/dL (35-150) Total Iron Binding Capacity 235ug/dL (250-450) Percent Iron Saturation 22%sat (15-50) Unsaturated Iron Binding 182.6ug/dL Ferritin 147ng/mL (13-150) Total Bilirubin 1.4mg/dL (0.0-1.2) Aspartate Amino Transf (AST/SGOT) 24U/L (0-50) Alanine Aminotransferase (ALT/SGPT) 13U/L (0-32) Alkaline Phosphatase 108U/L (25-165) Total Protein 6.6g/dL (6.4-8.4) Albumin 3.7g/dL (3.4-5.0) Hepatitis B Surface Antigen Negative (Negative) Hepatitis B Surface Antibody Non reactive (.) Hepatitis B Core Total Antibody Negative (Negative) HIV (1&2) Ag and Ab, 4th Generation Non reactive (Non Reactive) Test 02/06/17 08:40 02/06/17 13:59 D-Dimer 1.7mg/L (<0.50) Potassium Level 5.7mEq/L (3.5-5.2) Troponin T 0.119ug/L (0.0-0.011) Discharge Medications Discharge Medications Allopurinol (Allopurinol) 100 Mg Tablet 100 MG PO DAILY (Reported) Ascorbic Acid (Vitamin C) 1,000 Mg Tab.chew 1,000 MG PO DAILY (Reported) Aspirin (Aspirin) 325 Mg Tablet 325 MG PO HS (Reported) Calcium Polycarbophil (Fiber-Caps) 625 Mg Tablet 625 MG PO DAILY (Reported) Cyanocobalamin (Vitamin B12) 500 Mcg Tablet 2,000 MCG PO DAILY (Reported) Losartan Potassium (Losartan Potassium) 25 Mg Tablet 25 MG PO DAILY (Reported) Magnesium Oxide (Magnesium) 500 Mg Capsule 1,000 MG PO DAILY (Reported) [place]-3 Fatty Acids (Fish Oil) 500 Mg Capsule.dr 1,000 MG PO DAILY (Reported) Pyridoxine (Vitamin B-6) 50 Mg Tablet 200 MG PO DAILY (Reported) Spironolactone (Spironolactone) 25 Mg Tablet 0.5 TAB PO DAILY (Reported) Torsemide (Torsemide) 10 Mg Tablet 10 MG PO DAILY (Reported) Trazodone (Trazodone) 50 Mg Tablet 50 MG PO DIRECTED (Reported) Ubidecarenone (Coq-10) 100 Mg Capsule 200 MG PO DAILY (Reported) As needed ([Artificial Tears]) 15 DROP/ML SOLUTION 1 DROP AFFECT_EYE Q1H PRN PRN dry eyes Prescribed by: MELVA SANDS DO ([Bisacodyl]) 10 MG SUPP 10 MG RC DAILY PRN PRN See Dose Instructions Prescribed by: MELVA SANDS DO Atropine 1% Ophthalmic Drops (Atropine 1% Ophthalmic Drops) 1 % Drops 2-4 DRP PO Q1H PRN PRN to control secretions Prescribed by: MELVA SANDS DO Haloperidol Lactate (Haloperidol Lactate) 2 Mg/1 Ml Oral.conc 1 MG PO Q6 PRN PRN nausea,agitation,restlessness Prescribed by: MELVA SANDS DO Lorazepam (Ativan) 0.5 Mg Tablet 0.5 MG PO Q4 PRN PRN anxiety, sob Prescribed by: MELVA SANDS DO Morphine Sulfate Oral Concentrate (Roxanol Oral Concentrate) 100 Mg/5 Ml (20 Mg/ Ml) Solution 2 MG SL/PO Q4H PRN PRN For Shortness of Breath Prescribed by: MELVA SANDS DO Followup Plan Follow-up plan You will be seen and followed by [facility] hospice care. Discharge Diet: No restrictions Discharge Activity: No restrictions Patient Instructions Please keep the area of ulcer over the right lower leg dry and clean. Melva Sands DO Feb 08, 2017 08:44
--- NOTE | 2017-02-08 10:41 | NUR ---
Wound Care Patient seen prior to discharge for wound care. Spouse is present and has been performing dressing changes previously and wishes to continue doing so. Wounds at right lower rai and lateral rai are stable and without signs of infection. Anterior rai ulcer is 2.8 cm L x 2.4 cm W x 0.2 cm D, base is fibrin and granulation tissue, drainage is scant. Lateral rai ulcer is 2.2 cm L x 2.1 cm W x 0.2 cm D, base is fibrin and granulation tissue, drainage is scant. Wounds were cleaned with gauze and saline, redressed with hydrogel, aquacell ag, tape conform and surgilast. Recommended dressings be changed on a q 48 hr basis.
--- NOTE | 2017-02-08 12:45 | NUR ---
Discharge Pt discharged at 1125 with and daughter to private vehicle. Hospice will be meeting with family today since she was comfort care here. A&O x 3, GLEZ. Right IJ was removed yesterday. Tang removed intact. Pt has discharge instructions, 3 days worth of pain meds and care notes. All questions answered and has all belongings. WC changed bandage prior to d/c.
--- NOTE | 2017-02-08 14:45 | NUR ---
Social Work- Discharge Data: EMR Reviewed. Pt is on day 3 of hospitalization for hypotension. Pt to discharge today. Pt is medically stable, comfort care only. Pt has been up ambulating in room SBA. Hospice of the to open later today, equipment is being delivered at noon. Pt to discharge home with hospice with family to transport via POV. Assessment: Pt who will discharge on hospice. Plan: Pt to open with hospice later today. Pt to discharge home with hospice with family to transport via POV. CINTHIA Edward
== END 2017-02-08 11:25 | disposition hospice, home (50) | DRG 280 ==
LOC: PCC 02-05 00:38 → CCU 02-05 00:50 → PCC 02-06 16:01 → OSC 02-06 19:51
PROVIDERS: ADMIT Internal Medicine; ATTEND Internal Medicine
PROC: 4A033B1 Measurement of Arterial Pressure, Peripheral, Percutaneous Approach (ICD-10-PCS; principal; 2017-02-05)
PROC: 02HV33Z Insertion of Infusion Device into Superior Vena Cava, Percutaneous Approach (ICD-10-PCS; 2017-02-05)
PROC: 0HDKXZZ Extraction of Right Lower Leg Skin, External Approach (ICD-10-PCS; 2017-02-06)
DX: I21.4 Non-ST elevation (NSTEMI) myocardial infarction (principal); I50.33 Acute on chronic diastolic (congestive) heart failure; G93.41 Metabolic encephalopathy; R57.9 Shock, unspecified; N18.4 Chronic kidney disease, stage 4 (severe); L97.919 Non-pressure chronic ulcer of unspecified part of right lower leg with unspecified severity; E87.5 Hyperkalemia; I25.10 Atherosclerotic heart disease of native coronary artery without angina pectoris; D63.1 Anemia in chronic kidney disease; I27.2 Other secondary pulmonary hypertension; I34.0 Nonrheumatic mitral (valve) insufficiency; I07.1 Rheumatic tricuspid insufficiency; I48.0 Paroxysmal atrial fibrillation; Z51.5 Encounter for palliative care; Z95.0 Presence of cardiac pacemaker; Z87.891 Personal history of nicotine dependence